=== PATIENT | male | born 1955 | race Caucasian/White ===

== ENCOUNTER 2019-03-13 14:46 | Emergency (ER) | payer OTHER ==
[2019-03-13 15:14] VITALS: BP 148/89; PULSE 79; O2SAT 98
--- NOTE | 2019-03-13 15:17 | ERPHSYRPT ---
- History of Present Illness Time Seen by Provider: 03/13/19 15:12 Source: patient Exam Limitations: no limitations Physician History: injury to right eye 2 days ago. he was playing with grand son and grandson scratched in to his right eye Timing/Duration: yesterday Location: right eye Severity: moderate Apparent Injury: yes Associated Symptoms: pain, burning, sensitivity to light, redness, eyelid swelling, foreign body sensation, No decreased vision, No blurred vision Visual Assistive Devices: None Chemical Exposure: No Trauma: No Welding Arc/Tanning Bed Exposure: No Allergies/Adverse Reactions: No Known Drug Allergies Allergy (Verified 03/13/19 15:14) Home Medications: Aspirin 81 gm Chew [Baby Aspirin 81 mg Chew] 81 mg PO DAILY 11/20/15 [ History] Ibuprofen 200 mg [Motrin 200 mg] 200 mg PO UD PRN 11/20/15 [History] Simvastatin [Zocor] 20 mg PO DAILY 11/20/15 [History] Hx Influenza Vaccination/Date Given: No Hx Pneumococcal Vaccination/Date Given: No - Review of Systems Constitutional: No Fever, No Chills Eyes: Eye Pain, Eye Redness, Tearing, Foreign Body Sensation, No Photophobia, No Vision Changes, No Double Vision Ears, Nose, & Throat: No Symptoms Respiratory: No Cough, No Dyspnea Cardiac: No Chest Pain, No Edema, No Syncope Abdominal/Gastrointestinal: No Abdominal Pain, No Nausea, No Vomiting, No Diarrhea Genitourinary Symptoms: No Dysuria Musculoskeletal: No Back Pain, No Neck Pain Skin: No Rash Neurological: No Dizziness, No Focal Weakness, No Sensory Changes Psychological: No Symptoms Endocrine: No Symptoms All Other Systems: Reviewed and Negative - Past Medical History Pertinent Past Medical History: Yes Neurological History: Migraines ENT History: No Pertinent History Cardiac History: High Cholesterol, Other Respiratory History: No Pertinent History Endocrine Medical History: No Pertinent History Musculoskeletal History: Fractures GI Medical History: No Pertinent History History: No Pertinent History Psycho-Social History: No Pertinent History Male Reproductive Disorders: No Pertinent History Other Medical History: right leg edema- unknown cause. left middle finger reconstruction- nerve damage. borderline htn - Past Surgical History Past Surgical History: Yes Neuro Surgical History: No Pertinent History Cardiac: No Pertinent History Respiratory: No Pertinent History Gastrointestinal: No Pertinent History Genitourinary: No Pertinent History Musculoskeletal: Amputation Male Surgical History: No Pertinent History Other Surgical History: left middle finger. nasal scope with polypectomy and hemmorhage. T&A. left thumb reattachment - Social History Smoking Status: Current every day smoker How long have you smoked: 40 Exposure to second hand smoke: Yes Drug Use: none - Physical Exam General Appearance: no apparent distress Vision Acuity Degree Evaluation Phase: Corrected Vision Acuity Right Eye: 20/20 Vision Acuity Left Eye: 20/20 Eye Exam: right eye: conjunctival hemorrhage, conjunctival inflammation, corneal abrasion (no) - Course Nursing assessment & vital signs reviewed: Yes - Progress Progress: unchanged Counseled pt/family regarding: diagnosis, need for follow-up - Departure Departure Disposition: Home Clinical Impression: Abrasion of conjunctiva, right Qualifiers: Encounter type: initial encounter Qualified Code(s): S05.01XA - Injury of conjunctiva and corneal abrasion without foreign body, right eye, initial encounter Condition: Stable Critical Care Time: No Referrals: DANIEL TAVERAS [Primary Care Provider] - Instructions: Subconjunctival Hemorrhage Additional Instructions: Discharge/Care Plan BRISSA JHAVERI was seen on 03/13/19 in the Emergency Room. The patient was counseled regarding Diagnosis,Lab results, Imaging studies, need for follow up and when to return to the Emergency Room. Prescriptions given: Discharge Note I have spoken with the patient and/or caregivers. I have explained the patient' s condition, diagnosis and treatment plan based on the information available to me at this time. I have answered the patient's and/or caregiver's questions and addressed any concerns. The patient and/or caregivers have as good understanding of the patient's diagnosis, condition and treatment plan as can be expected at this point. The vital signs have been stable. The patient's condition is stable and appropriate for discharge from the emergency department. The patient will pursue further outpatient evaluation with the primary care physician or other designated or consulting physician as outlined in the discharge instructions. The patient and/or caregivers are agreeable to this plan of care and follow-up instructions have been explained in detail. The patient and/or caregivers have received these instruction. The patient/and or caregivers are aware that any significant change in condition or worsening of symptoms should prompt an immediate return to this or the closest emergency department or call 911. Prescriptions: Tobramycin Sulfate/Dexameth [Tobradex Eye Drops] 10 ml OP QID #10 bottle
== END 2019-03-13 15:21 | disposition home or self-care (01) ==
LOC: ED 14:46
DX: S05.01XA Injury of conjunctiva and corneal abrasion without foreign body, right eye, initial encounter (principal); W50.4XXA Accidental scratch by another person, initial encounter
CPT/HCPCS: 99283

== ENCOUNTER 2019-04-04 03:41 | Observation (INO) | payer OTHER ==
--- NOTE | 2019-04-04 04:04 | ERPHSYRPT ---
- History of Present Illness Time Seen by Provider: 04/04/19 04:00 Source: patient, family, EMS Exam Limitations: no limitations Physician History: pt has hx of recent cough tx as bronchitis and had been coughing in bed - so he was getting up to get cough syrup - but not coughing at the time - and suddenly blacked out and hit his face on floor - no CP or dizziness - hx CABG in 2018. Timing/Duration: today Severity: moderate Modifying Factors: Improves With: nothing Associated Symptoms: cough, syncope Allergies/Adverse Reactions: No Known Drug Allergies Allergy (Verified 04/04/19 04:09) Home Medications: Aspirin 81 gm Chew [Baby Aspirin 81 mg Chew] 81 mg PO DAILY 11/20/15 [ History] Carvedilol 3.125 mg [Coreg 3.125 MG] 1 tab PO BID 04/04/19 [History] Clopidogrel Bisulfate 75 mg [PLAVIX 75 MG Tablet] 1 tab PO DAILY 04/04/19 [History] Rosuvastatin Calcium [Crestor] 1 tab PO HS 04/04/19 [History] lisinopriL [Lisinopril] 2.5 mg PO HS 04/04/19 [History] Hx Tetanus, Diphtheria Vaccination/Date Given: Yes Hx Influenza Vaccination/Date Given: No Hx Pneumococcal Vaccination/Date Given: No - Review of Systems Constitutional: No Fever, No Chills Eyes: No Symptoms Ears, Nose, & Throat: Nose Pain, Other (hit left face and nose) Respiratory: Cough, Wheezing, No Dyspnea Cardiac: No Chest Pain, No Edema, No Syncope Abdominal/Gastrointestinal: No Abdominal Pain, No Nausea, No Vomiting, No Diarrhea Genitourinary Symptoms: No Dysuria Musculoskeletal: Neck Pain, Fall, Injury, No Back Pain Skin: Other (abrasion left face), No Rash Neurological: Other (syncope), No Dizziness, No Focal Weakness, No Sensory Changes Psychological: No Symptoms Endocrine: No Symptoms Hematologic/Lymphatic: No Symptoms Immunological/Allergic: No Symptoms All Other Systems: Reviewed and Negative - Past Medical History Pertinent Past Medical History: Yes Neurological History: Migraines ENT History: No Pertinent History Cardiac History: High Cholesterol, Other Respiratory History: No Pertinent History Endocrine Medical History: No Pertinent History Musculoskeletal History: Fractures GI Medical History: No Pertinent History History: No Pertinent History Psycho-Social History: No Pertinent History Male Reproductive Disorders: No Pertinent History Other Medical History: right leg edema- unknown cause. left middle finger reconstruction- nerve damage. borderline htn - Past Surgical History Past Surgical History: Yes Neuro Surgical History: No Pertinent History Cardiac: No Pertinent History Respiratory: No Pertinent History Gastrointestinal: No Pertinent History Genitourinary: No Pertinent History Musculoskeletal: Amputation Male Surgical History: No Pertinent History Other Surgical History: left middle finger. nasal scope with polypectomy and hemmorhage. T&A. left thumb reattachment - Social History Smoking Status: Current every day smoker How long have you smoked: 40 Exposure to second hand smoke: Yes Drug Use: none Patient Lives Alone: No - Nursing Vital Signs Nursing Vital Signs: Initial Vital Signs Pulse Rate 68 04/04/19 03:57 Respiratory Rate 18 04/04/19 03:57 Blood Pressure 136/79 04/04/19 03:57 O2 Sat by Pulse Oximetry 95 04/04/19 03:57 Pain Scale Pain Intensity 3 - Physical Exam General Appearance: no apparent distress, alert Eye Exam: PERRL/EOMI, eyes nml inspection Ears, Nose, Throat Exam: TMs normal, pharynx normal, moist mucous membranes, other (left face trauma, nasal bleeding, tenderness) Neck Exam: normal inspection, supple, limited range of motion, midline tenderness Respiratory Exam: normal breath sounds, lungs clear, No respiratory distress Cardiovascular Exam: regular rate/rhythm, normal heart sounds, normal peripheral pulses Gastrointestinal/Abdomen Exam: soft, normal bowel sounds, No tenderness, No mass Rectal Exam: deferred Back Exam: normal inspection, normal range of motion, No CVA tenderness, No vertebral tenderness Extremity Exam: normal inspection, normal range of motion, pelvis stable Neurologic Exam: alert, oriented x 3, cooperative, 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 nml as tested, normal mood/affect, nml cerebellar function, nml station & gait, sensation nml, No motor deficits, No sensory deficit Skin Exam: normal color, warm, dry, ecchymosis (left face), No rash Lymphatic Exam: No adenopathy - Course Nursing assessment & vital signs reviewed: Yes EKG Interpreted by Me: Sinus Rhythm, NORMAL AXIS, NORMAL INTERVALS, Non- specific ST Changes - Radiology Exams Chest X-ray Interpretation: Reviewed by me, Infiltrates (rml with calc nodes and granulomata) - CT Exams Head CT Interpretation: Tele-radiologist Report, No/Intracranial Hemorrhag, Other ( mild white matter abn) Cervical Spine CT Interpretation: Tele-radiologist Report, No Fracture Maxillofacial Bones CT Interpretation: Tele-radiologist Report, No Fracture, Other (nasal fx suspected anyway) Ordered Tests: Active Orders 24 hr Category Date Time Status 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 Care 04/04/19 04:08 Active EKG-ER Only STAT Care 04/04/19 04:06 Active IV Insertion STAT Care 04/04/19 04:06 Active Pulse Oximetry (ED) STAT Care 04/04/19 04:06 Active CERVICAL SPINE WO CONTRAST [CT] Stat Exams 04/04/19 04:04 Taken CHEST 2 VIEWS (PA AND LAT) Stat Exams 04/04/19 04:08 Taken FACIAL BONES WO CONTRAST [CT] Stat Exams 04/04/19 04:05 Taken HEAD WITHOUT CONTRAST [CT] Stat Exams 04/04/19 04:05 Taken CBC W DIFF Stat Lab 04/04/19 04:19 Completed CMP Stat Lab 04/04/19 04:19 Completed Lactic Acid Stat Lab 04/04/19 05:05 Completed Manual Differential NC Stat Lab 04/04/19 04:19 Completed NT PRO BNP Stat Lab 04/04/19 04:19 Completed TROPONIN Q3H Lab 04/04/19 04:19 Completed TROPONIN Q3H Lab 04/04/19 07:15 Ordered TROPONIN Q3H Lab 04/04/19 10:15 Ordered TROPONIN Q3H Lab 04/04/19 13:15 Ordered TROPONIN Q3H Lab 04/04/19 16:15 Ordered UA W/RFX UR CULTURE Stat Lab 04/04/19 04:14 Ordered Respiratory Therapy Assessment DAILY RT 04/04/19 05:52 Completed Medication Summary Generic Name Dose Route Start Last Admin Trade Name Freq PRN Reason Stop Dose Admin Sodium Chloride 1,000 mls @ 50 mls/hr 04/04/19 04:15 04/04/19 04:13 Sodium Chloride 0.9% 1000 Ml IV 05/04/19 04:14 50 mls/hr .Q20H JERED Administration Potassium Chloride 20 meq in 100 mls @ 50 mls/hr 04/04/19 05:15 04/04/19 05: 24 Potassium Chloride 20 Meq In Water 100ml IV 04/04/19 09:14 50 mls/hr Q2H JERED Administration Sodium Chloride 1,000 mls @ 100 mls/hr 04/04/19 06:00 Sodium Chloride 0.9% 1000 Ml IV 05/04/19 05:59 .Q10H JERED Discontinued Medications Generic Name Dose Route Start Last Admin Trade Name Jaq PRN Reason Stop Dose Admin Albuterol/Ipratropium 3 ml 04/04/19 05:10 04/04/19 05:57 Duoneb 0.5-3 Mg/3 Ml Neb IH 04/04/19 05:11 3 ml STAT ONE Administration Albuterol/Ipratropium Confirm 04/04/19 05:49 Duoneb 0.5-3 Mg/3 Ml Neb Administered 04/04/19 05:50 Dose 3 ml IH .STK-MED ONE Levofloxacin/Dextrose 750 mg in 150 mls @ 100 mls/hr 04/04/19 04:19 04/04/19 05:58 Levofloxacin 750mg/150ml D5w IV 04/04/19 05:48 Infused STAT STA Infusion Ceftriaxone Sodium/Dextrose 1 g in 50 mls @ 100 mls/hr 04/04/19 04:19 05:19 Rocephin 1 Gm-D5w 50 Ml Bag IV 04/04/19 04:48 Infused STAT STA Infusion Ceftriaxone Sodium/Dextrose Confirm 04/04/19 04:33 Rocephin 1 Gm-D5w 50 Ml Bag Administered 04/04/19 04:34 Dose 1 g in 50 mls @ ud IV .STK-MED ONE Levofloxacin/Dextrose Confirm 04/04/19 04:33 Levofloxacin 750mg/150ml D5w Administered 04/04/19 04:34 Dose 750 mg in 150 mls @ ud IV .STK-MED ONE Potassium Bicarbonate 25 meq 04/04/19 05:11 04/04/19 05:23 K-Lyte 25 Meq PO 04/04/19 05:12 25 meq STAT ONE Administration Potassium Bicarbonate Confirm 04/04/19 05:18 K-Lyte 25 Meq Administered 04/04/19 05:19 Dose 25 meq .ROUTE .STK-MED ONE Lab/Rad Data: Laboratory Result Diagrams 04/04/19 04:19 04/04/19 04:19 Laboratory Results 04/04/19 04/04/19 04/04/19 Range/Units Unknown 05:05 04:19 WBC (4.0-10.5) K/mm3 RBC (4.1-5.6) M/mm3 Hgb (12.5-18.0) gm/dl Hct (42-50) % MCV (78-100) fl MCH (26-32) pg MCHC (32-36) g/dl RDW (11.5-14.0) % Plt Count (150-450) K/mm3 MPV (7.5-11.0) fl Segmented Neutrophils (36.-66.) % Band Neutrophils (0.0-2.0) % Lymphocytes (Manual) (24-44) % Monocytes (Manual) (0.0-12.0) % Eosinophils (Manual) (0.00-3.0) % Platelet Estimate (NORMAL) RBC Morphology Sodium (137-145) mmol/L Potassium (3.5-5.1) mmol/L Chloride (98-107) mmol/L Carbon Dioxide (22-30) mmol/L Anion Gap (5-15) MEQ/L BUN (9-20) mg/dL Creatinine (0.66-1.25) mg/dL Estimated GFR ML/MIN Glucose (74-106) mg/dL Lactic Acid 1.4 (0.4-2.0) Calcium (8.4-10.2) mg/dL Total Bilirubin (0.2-1.3) mg/dL AST (17-59) U/L ALT (0-50) U/L Alkaline Phosphatase (38-126) U/L Troponin I < 0.012 (0.000-0.034) ng/mL NT-Pro-B Natriuret Pep (0-900) pg/mL Serum Total Protein (6.3-8.2) g/dL Albumin (3.5-5.0) g/dL Influenza Type A Ag NEGATIVE (NEGATIVE) Influenza Type B Ag NEGATIVE (NEGATIVE) RSV (PCR) NEGATIVE (Negative) 04/04/19 04/04/19 Range/Units 04:19 04:19 WBC 10.8 H (4.0-10.5) K/mm3 RBC 4.45 (4.1-5.6) M/mm3 Hgb 13.7 (12.5-18.0) gm/dl Hct 42.9 (42-50) % MCV 96.4 (78-100) fl MCH 30.8 (26-32) pg MCHC 31.9 L (32-36) g/dl RDW 14.0 (11.5-14.0) % Plt Count 255 (150-450) K/mm3 MPV 10.7 (7.5-11.0) fl Segmented Neutrophils 77 H (36.-66.) % Band Neutrophils 1 (0.0-2.0) % Lymphocytes (Manual) 11 L (24-44) % Monocytes (Manual) 9 (0.0-12.0) % Eosinophils (Manual) 2 (0.00-3.0) % Platelet Estimate NORMAL (NORMAL) RBC Morphology NORMAL Sodium 140 (137-145) mmol/L Potassium 3.2 L (3.5-5.1) mmol/L Chloride 103 (98-107) mmol/L Carbon Dioxide 29 (22-30) mmol/L Anion Gap 10.8 (5-15) MEQ/L BUN 15 (9-20) mg/dL Creatinine 0.89 (0.66-1.25) mg/dL Estimated GFR > 60.0 ML/MIN Glucose 110 H (74-106) mg/dL Lactic Acid (0.4-2.0) Calcium 9.0 (8.4-10.2) mg/dL Total Bilirubin 0.50 (0.2-1.3) mg/dL AST 52 (17-59) U/L ALT 44 (0-50) U/L Alkaline Phosphatase 96 (38-126) U/L Troponin I (0.000-0.034) ng/mL NT-Pro-B Natriuret Pep 208 (0-900) pg/mL Serum Total Protein 6.8 (6.3-8.2) g/dL Albumin 3.8 (3.5-5.0) g/dL Influenza Type A Ag (NEGATIVE) Influenza Type B Ag (NEGATIVE) RSV (PCR) (Negative) - Progress Progress: improved, re-examined Progress Note: 04/04/19 04:58 although faint score is only 1 (for minor abn ekg) 3% risk, the [place] score ( hx CAD and sudden syncope without warning) is 3 at 8% risk 04/04/19 06:[address] Ruiz and pt /family and all agree best to place on tele obs due to cardiac risk Discussed with : Liz Will see patient in: hospital (observation) Counseled pt/family regarding: lab results, diagnosis, need for follow-up, rad results - Departure Departure Disposition: Observation Clinical Impression: Syncopal episodes Condition: Good Critical Care Time: No Referrals: DANIEL TAVERAS [Primary Care Provider] -
[2019-04-04] MEDS ORDERED: Sodium Chloride 0.9% 1000 ML 0 ML ONE (04:13)
[2019-04-04] MEDS ORDERED: Sodium Chloride 0.9% 1000 ML 1,000 ML IV SCH ×2 (04:15→06:00)
[2019-04-04] MEDS ORDERED: LEVOFLOXACIN 750MG/150ML D5W 750 MG/150 ML BAG IV STA (04:19)
[2019-04-04] MEDS ORDERED: ROCEPHIN 1 Gm-D5w 50 ml Bag** 1 G/50 ML IVPB IV STA (04:19)
[2019-04-04 04:20] LABS: Hematocrit 42.9 % (42-50); Hemoglobin 13.7 gm/dl (12.5-18.0); Mean Cell Volume 96.4 fl (78-100); Mean Corpuscular Hemoglobin 30.8 pg (26-32); Mean Corpuscular Hgb Concent. 31.9 g/dl (32-36); Mean Platelet Volume 10.7 fl (7.5-11.0); Platelet Count 255 K/mm3 (150-450); Red Blood Count 4.45 M/mm3 (4.1-5.6); White Blood Count 10.8 K/mm3 (4.0-10.5)
[2019-04-04] MEDS ORDERED: LEVOFLOXACIN 750MG/150ML D5W 750 MG/150 ML BAG IV ONE (04:33)
[2019-04-04] MEDS ORDERED: ROCEPHIN 1 Gm-D5w 50 ml Bag** 1 G/50 ML IVPB IV ONE (04:33)
[2019-04-04 04:53] LABS: ALBUMIN 3.8 g/dL (3.5-5.0); ALKALINE PHOSPHATASE 96 U/L (38-126); ANION GAP 10.8 MEQ/L (5-15); BLOOD UREA NITROGEN 15 mg/dL (9-20); CHLORIDE 103 mmol/L (98-107); Carbon Dioxide 29 mmol/L (22-30); Creatinine 1 0.89 mg/dL (0.66-1.25); Glucose 110 mg/dL (74-106); NT PRO BNP 208 pg/mL (0-900); Potassium 3.2 mmol/L (3.5-5.1); SGOT/AST 52 U/L (17-59); SGPT/ALT 44 U/L (0-50); SODIUM 140 mmol/L (137-145); Total Protein 6.8 g/dL (6.3-8.2)
[2019-04-04] MEDS ORDERED: DUONEB 0.5-3 MG/3 ml Neb IH ONE ×2 (05:10→05:49)
[2019-04-04] MEDS ORDERED: K-LYTE 25 MEQ PO ONE (05:11)
[2019-04-04 05:13] LABS: BAND 1 % (0.0-2.0); Eosinophil 2 % (0.00-3.0); Lymphocytes 11 % (24-44); Monocyte 9 % (0.0-12.0); Neutrophils 77 % (36.-66.); Total Cells Counted 100
[2019-04-04 05:14] LABS: Platelet Estimate NORMAL (NORMAL)
[2019-04-04] MEDS ORDERED: K-LYTE 25 MEQ ONE (05:18)
[2019-04-04] MEDS: POTASSIUM CHLORIDE 20 mEq IN WATER 100ML 20 MEQ/100 ML BAG IV SCH ×2 (05:24→12:36)
[2019-04-04 05:36] LABS: INFLUENZA A NEGATIVE (NEGATIVE); INFLUENZA B NEGATIVE (NEGATIVE); RESPIRATORY SYNCTIAL VIRUS NEGATIVE (Negative)
[2019-04-04] MEDS ORDERED: Sodium Chloride 0.9% 1000 ML 1,000 ML ONE (05:46)
[2019-04-04 06:41] LABS: Appearance SLIGHTLY CLOUDY (CLEAR); Bilirubin NEGATIVE (NEGATIVE); Blood NEGATIVE Ery/ul (0-5); Epithelial Cells RARE /HPF (FEW); Glucose NEGATIVE (NEGATIVE); Hyaline Casts 0-2 /LPF (0-2); Ketones NEGATIVE (NEGATIVE); Leukocyte Esterase NEGATIVE (NEGATIVE); Mucus SLIGHT /HPF (NEGATIVE); Nitrite NEGATIVE (NEGATIVE); Protein,Urine Dip NEGATIVE (Negative); Specific Gravity 1.026 (1.005-1.025); Urobilinogen NEGATIVE mg/dL (0-1)
[2019-04-04] MEDS ORDERED: TYLENOL EXTRA STRENGTH 500 MG PO STA (07:04)
[2019-04-04] MEDS ORDERED: TYLENOL EXTRA STRENGTH 500 MG ONE (07:46)
[2019-04-04] MEDS ORDERED: DUONEB 0.5-3 MG/3 ml Neb IH PRN (08:15)
--- NOTE | 2019-04-04 08:41 | XRAY ---
Indication: Wheezing. Syncope. Pneumonia. Comparison: March 30, 2019. PA/lateral chest less inflated again with minimal lingular fibrosis/scarring and scattered calcified granulomas. No focal infiltrate, consolidation, or large effusion. Heart is not enlarged again with CABG surgery. Impression: Stable nonacute chest with chronic features.
--- NOTE | 2019-04-04 08:43 | XRAY ---
Indication: Syncope with fall. Multiple contiguous axial images obtained through the head without contrast. Comparison: None Age-appropriate global atrophy. No acute intracranial hemorrhage, abnormal extra-axial fluid collection, or mass effect. Fourth ventricle is midline without hydrocephalus. Moreno-white matter differentiation preserved. Bony calvarium intact. There is near complete opacification of both ethmoid sinuses with mild mucosal thickening of both maxillary and lesser degree sphenoid sinuses. Mastoid air cells are clear. Impression: Pansinusitis. Remaining CT head without contrast exam is normal. Comment: Preliminary interpretation was made by [facility]. No critical discrepancy.
--- NOTE | 2019-04-04 08:47 | XRAY ---
Indication: Syncope with fall. Multiple contiguous axial images obtained through the facial bones. Sagittal and coronal reformatted images obtained. Comparison: None Bilateral dental amalgams produces beam artifact limiting these levels. No acute fracture, suspicious bony lesions, or radiopaque foreign body. Orbits including roof, barnes, and floors are intact. There is near complete opacification of both ethmoid sinuses with mild mucosal thickening of both maxillary and lesser degree both sphenoid/frontal sinuses. Additional mucosal thickening of both nasal passages. Moderate nasal septal deviation. Remaining visualized noncontrasted soft tissues are unremarkable. CT head and CT cervical spine reported separately. Impression: Pansinusitis and nasal septal deviation. Remaining CT facial bones is negative. Comment: Preliminary interpretation was made by [facility]. No critical discrepancy.
--- NOTE | 2019-04-04 08:49 | XRAY ---
Indication: Syncope with fall. Multiple contiguous axial images obtained through the cervical spine. Sagittal and coronal reformatted images obtained. Comparison: None Axial images negative for acute fracture, suspicious bony lesions, or spinal canal stenosis. Minimal C6-T1 degenerative endplate spurring. Minimal multilevel degenerative facet hypertrophy, right greater than left. Sagittal and coronal reformatted images demonstrate normal alignment. Minimal C6-C7 disc space narrowing. No acute compression fracture, subluxation, or jumped facet. Normal appearing craniocervical junction. Visualized noncontrasted soft tissues demonstrates mild carotid calcifications bilaterally. CT head and CT facial bones reported separately. Impression: Mild multilevel degenerative changes. Remaining CT cervical spine is negative. Comment: Preliminary interpretation was made by [facility]. No critical discrepancy.
[2019-04-04] MEDS: solu-MEDROL 125 MG IV SCH ×4 (10:37→23:16)
[2019-04-04] MEDS ORDERED: POTASSIUM CHLORIDE 20 mEq IN WATER 100ML 100 ML IV ONE (12:25)
[2019-04-04] MEDS ORDERED: OCEAN Nasal Spray NS PRN (16:15)
[2019-04-04] MEDS: PLAVIX 75 MG Tablet PO SCH (16:29)
[2019-04-04] MEDS: ECOTRIN 81 MG PO SCH (16:29)
[2019-04-04] MEDS: Coreg 3.125 MG PO SCH ×2 (16:29→22:04)
[2019-04-04] MEDS: Mobic 7.5 MG PO SCH (16:30)
[2019-04-04] MEDS: PROVENTIL 2.5 MG/3 ML NEB IH SCH (19:50)
--- NOTE | 2019-04-04 20:11 | PCM.HP ---
History of Present Illness - Chief Complaint Chief Complaint: snycope History of Present Illness: is a 63 year old male pt of mine from [facility] with CAD (hx CABG) and HTN who was admitted through ER this morning with syncope. He sat up in bed to cough and fell over onto his face, injuring his left cheek. He was not responding to his (but was breathing) then had some jerking motions and then woke up. EMS responded but did not take pt to ER; pt's then put him in the car and went to ER. While in the ED, he had a coughing fit and his face turned red; called for staff. Pt does not remember this episode but he did not fully lose consciousness. Apparently pt has been ill with upper and lower respiratory symptoms for the past 5-6 wks. He was treated a few times in clinic, both with steroids and antibiotics. He thought he was starting to improve. He does note he has never been this sick. CT head with childers sinusitis, neg for bleed. CXR read as RML infiltrate in ER, but read as negative by radiologist. Troponins neg x 5. Flu neg. Pt was given 1 dose of rocephin IV and 1 dose Levaquin IV today. - Review of Systems Constitutional: Fever (last week, none in the past 5d) Ears, Nose, & Throat: Other (pain L cheek s/p fall) Respiratory: Cough, Short Of Breath, Wheezing Cardiac: Chest Pain (with coughing), Edema (LLE, chronic), Syncope Abdominal/Gastrointestinal: Diarrhea (last week), Appetite Changes, Other ( dyspepsia this week) Musculoskeletal: Fall, Injury All Other Systems: Reviewed and Negative Medications & Allergies Home Medications: Home Medication List Aspirin 81 gm Chew [Baby Aspirin 81 mg Chew] 81 mg PO DAILY 11/20/15 [ History Confirmed 04/04/19] Carvedilol 3.125 mg [Coreg 3.125 MG] 1 tab PO BID 04/04/19 [History Confirmed 04/04/19] Clopidogrel Bisulfate 75 mg [PLAVIX 75 MG Tablet] 1 tab PO DAILY 04/04/19 [History Confirmed 04/04/19] Multivitamin [Multivitamins] 1 each PO DAILY 04/04/19 [History Confirmed ] Rosuvastatin Calcium [Crestor] 1 tab PO HS 04/04/19 [History Confirmed 04/04/19] lisinopriL [Lisinopril] 2.5 mg PO HS 04/04/19 [History Confirmed 04/04/19] Allergies/Adverse Reactions: Allergies Allergy/AdvReac Type Severity Reaction Status Date / Time No Known Drug Allergies Allergy Verified 04/04/19 04:09 - Past Medical History Past Medical History: Yes Neurological History: Migraines ENT History: No Pertinent History Cardiac History: High Cholesterol, Other Respiratory History: No Pertinent History Endocrine Medical History: No Pertinent History Musculoskelatal History: Fractures GI Medical History: No Pertinent History History: No Pertinent History Pyscho-Social History: No Pertinent History Male Reproductive Disorders: No Pertinent History Comment: right leg edema- unknown cause. left middle finger reconstruction- nerve damage. borderline htn - Past Surgical History Past Surgical History: Yes Neuro Surgical History: No Pertinent History Cardiac History: CABG Respiratory Surgery: No Pertinent History GI Surgical History: No Pertinent History Genitourinary Surgical Hx: No Pertinent History Musculskeletal Surgical Hx: Amputation Male Surgical History: No Pertinent History Other Surgical History: left middle finger. nasal scope with polypectomy and hemmorhage. T&A. left thumb reattachment. CABG 2018 - Social History Smoking Status: Former smoker How long have you smoked: 40 Exposure to second hand smoke: Yes Alcohol: Rarely Drug Use: none - Physical Exam Vital Signs: Vital Signs - 24 hr Temp Pulse Resp BP Pulse Ox 04/04/19 19:52 80 20 92 L 04/04/19 19:30 98.8 F 78 22 119/67 91 L 04/04/19 16:14 97.8 F 70 20 133/78 97 04/04/19 12:20 97.7 F 67 20 143/80 98 04/04/19 08:42 98.2 F 70 20 136/75 96 04/04/19 08:20 92 L 04/04/19 08:19 98.2 F 70 20 136/75 96 04/04/19 08:00 98.2 F 70 20 136/75 96 04/04/19 07:05 68 153/91 96 04/04/19 05:59 64 22 133/81 100 04/04/19 05:57 66 19 96 04/04/19 05:53 65 132/75 97 04/04/19 05:00 60 16 128/71 97 04/04/19 04:14 98 04/04/19 03:57 68 18 136/79 95 General Appearance: no apparent distress, alert Neurologic Exam: oriented x 3, cooperative Eye Exam: other (lateral to L eye and inferior to that there is bruising) Ears, Nose, Throat Exam: moist mucous membranes Neck Exam: normal inspection, non-tender, No lymphadenopathy Respiratory Exam: normal breath sounds, crackles/rales (mild bilat bases), No rhonchi, No wheezing Cardiovascular Exam: regular rate/rhythm, normal heart sounds, No murmur Gastrointestinal/Abdomen Exam: soft, No normal bowel sounds (hypoactive but present), No tenderness, No mass, No guarding, No rebound Back Exam: normal inspection, No CVA tenderness, No rash Extremity Exam: normal inspection, No pedal edema, No swelling Skin Exam: normal color, warm, dry, No rash Results - Labs Lab/Micro Results: Accuchecks Date 04/04/19 Date 04/04/19 Time 16:30 Time 12:21 Accucheck Value: 120 Accucheck Value: 106 Lab Results-Last 24 Hours 04/04/19 04/04/19 04/04/19 Range/Units 04:14 04:19 04:19 WBC 10.8 H (4.0-10.5) K/mm3 RBC 4.45 (4.1-5.6) M/mm3 Hgb 13.7 (12.5-18.0) gm/dl Hct 42.9 (42-50) % MCV 96.4 (78-100) fl MCH 30.8 (26-32) pg MCHC 31.9 L (32-36) g/dl RDW 14.0 (11.5-14.0) % Plt Count 255 (150-450) K/mm3 MPV 10.7 (7.5-11.0) fl Segmented Neutrophils 77 H (36.-66.) % Band Neutrophils 1 (0.0-2.0) % Lymphocytes (Manual) 11 L (24-44) % Monocytes (Manual) 9 (0.0-12.0) % Eosinophils (Manual) 2 (0.00-3.0) % Platelet Estimate NORMAL (NORMAL) RBC Morphology NORMAL Sodium 140 (137-145) mmol/L Potassium 3.2 L (3.5-5.1) mmol/L Chloride 103 (98-107) mmol/L Carbon Dioxide 29 (22-30) mmol/L Anion Gap 10.8 (5-15) MEQ/L BUN 15 (9-20) mg/dL Creatinine 0.89 (0.66-1.25) mg/dL Estimated GFR > 60.0 ML/MIN Glucose 110 H (74-106) mg/dL Hemoglobin A1c (4.5-6.0) % Lactic Acid (0.4-2.0) Calcium 9.0 (8.4-10.2) mg/dL Total Bilirubin 0.50 (0.2-1.3) mg/dL AST 52 (17-59) U/L ALT 44 (0-50) U/L Alkaline Phosphatase 96 (38-126) U/L Troponin I (0.000-0.034) ng/mL NT-Pro-B Natriuret Pep 208 (0-900) pg/mL Serum Total Protein 6.8 (6.3-8.2) g/dL Albumin 3.8 (3.5-5.0) g/dL Urine Color YELLOW (YELLOW) Urine Appearance SLIGHTLY CLOUDY (CLEAR) Urine pH 5.0 (5-6) Ur Specific [place] 1.026 (1.005-1.025) Urine Protein NEGATIVE (Negative) Urine Ketones NEGATIVE (NEGATIVE) Urine Blood NEGATIVE (0-5) Ish/ul Urine Nitrite NEGATIVE (NEGATIVE) Urine Bilirubin NEGATIVE (NEGATIVE) Urine Urobilinogen NEGATIVE (0-1) mg/dL Ur Leukocyte Esterase NEGATIVE (NEGATIVE) Urine WBC (Auto) 3-5 (0-5) /HPF Urine RBC (Auto) 3-5 (0-2) /HPF U Hyaline Cast (Auto) 0-2 (0-2) /LPF U Epithel Cells (Auto) RARE (FEW) /HPF Urine Bacteria (Auto) NONE (NEGATIVE) /HPF Urine Mucus (Auto) SLIGHT (NEGATIVE) /HPF Urine Culture Reflexed NO (NO) Urine Glucose NEGATIVE (NEGATIVE) mg/dL Influenza Type A Ag (NEGATIVE) Influenza Type B Ag (NEGATIVE) RSV (PCR) (Negative) 04/04/19 04/04/19 04/04/19 Range/Units 04:19 04:19 05:05 WBC (4.0-10.5) K/mm3 RBC (4.1-5.6) M/mm3 Hgb (12.5-18.0) gm/dl Hct (42-50) % MCV (78-100) fl MCH (26-32) pg MCHC (32-36) g/dl RDW (11.5-14.0) % Plt Count (150-450) K/mm3 MPV (7.5-11.0) fl Segmented Neutrophils (36.-66.) % Band Neutrophils (0.0-2.0) % Lymphocytes (Manual) (24-44) % Monocytes (Manual) (0.0-12.0) % Eosinophils (Manual) (0.00-3.0) % Platelet Estimate (NORMAL) RBC Morphology Sodium (137-145) mmol/L Potassium (3.5-5.1) mmol/L Chloride (98-107) mmol/L Carbon Dioxide (22-30) mmol/L Anion Gap (5-15) MEQ/L BUN (9-20) mg/dL Creatinine (0.66-1.25) mg/dL Estimated GFR ML/MIN Glucose (74-106) mg/dL Hemoglobin A1c 5.95 (4.5-6.0) % Lactic Acid 1.4 (0.4-2.0) Calcium (8.4-10.2) mg/dL Total Bilirubin (0.2-1.3) mg/dL AST (17-59) U/L ALT (0-50) U/L Alkaline Phosphatase (38-126) U/L Troponin I < 0.012 (0.000-0.034) ng/mL NT-Pro-B Natriuret Pep (0-900) pg/mL Serum Total Protein (6.3-8.2) g/dL Albumin (3.5-5.0) g/dL Urine Color (YELLOW) Urine Appearance (CLEAR) Urine pH (5-6) Ur Specific [place] (1.005-1.025) Urine Protein (Negative) Urine Ketones (NEGATIVE) Urine Blood (0-5) Ish/ul Urine Nitrite (NEGATIVE) Urine Bilirubin (NEGATIVE) Urine Urobilinogen (0-1) mg/dL Ur Leukocyte Esterase (NEGATIVE) Urine WBC (Auto) (0-5) /HPF Urine RBC (Auto) (0-2) /HPF U Hyaline Cast (Auto) (0-2) /LPF U Epithel Cells (Auto) (FEW) /HPF Urine Bacteria (Auto) (NEGATIVE) /HPF Urine Mucus (Auto) (NEGATIVE) /HPF Urine Culture Reflexed (NO) Urine Glucose (NEGATIVE) mg/dL Influenza Type A Ag (NEGATIVE) Influenza Type B Ag (NEGATIVE) RSV (PCR) (Negative) 04/04/19 04/04/19 04/04/19 Range/Units 07:24 10:15 13:15 WBC (4.0-10.5) K/mm3 RBC (4.1-5.6) M/mm3 Hgb (12.5-18.0) gm/dl Hct (42-50) % MCV (78-100) fl MCH (26-32) pg MCHC (32-36) g/dl RDW (11.5-14.0) % Plt Count (150-450) K/mm3 MPV (7.5-11.0) fl Segmented Neutrophils (36.-66.) % Band Neutrophils (0.0-2.0) % Lymphocytes (Manual) (24-44) % Monocytes (Manual) (0.0-12.0) % Eosinophils (Manual) (0.00-3.0) % Platelet Estimate (NORMAL) RBC Morphology Sodium (137-145) mmol/L Potassium (3.5-5.1) mmol/L Chloride (98-107) mmol/L Carbon Dioxide (22-30) mmol/L Anion Gap (5-15) MEQ/L BUN (9-20) mg/dL Creatinine (0.66-1.25) mg/dL Estimated GFR ML/MIN Glucose (74-106) mg/dL Hemoglobin A1c (4.5-6.0) % Lactic Acid (0.4-2.0) Calcium (8.4-10.2) mg/dL Total Bilirubin (0.2-1.3) mg/dL AST (17-59) U/L ALT (0-50) U/L Alkaline Phosphatase (38-126) U/L Troponin I < 0.012 < 0.012 < 0.012 (0.000-0.034) ng/mL NT-Pro-B Natriuret Pep (0-900) pg/mL Serum Total Protein (6.3-8.2) g/dL Albumin (3.5-5.0) g/dL Urine Color (YELLOW) Urine Appearance (CLEAR) Urine pH (5-6) Ur Specific [place] (1.005-1.025) Urine Protein (Negative) Urine Ketones (NEGATIVE) Urine Blood (0-5) Ish/ul Urine Nitrite (NEGATIVE) Urine Bilirubin (NEGATIVE) Urine Urobilinogen (0-1) mg/dL Ur Leukocyte Esterase (NEGATIVE) Urine WBC (Auto) (0-5) /HPF Urine RBC (Auto) (0-2) /HPF U Hyaline Cast (Auto) (0-2) /LPF U Epithel Cells (Auto) (FEW) /HPF Urine Bacteria (Auto) (NEGATIVE) /HPF Urine Mucus (Auto) (NEGATIVE) /HPF Urine Culture Reflexed (NO) Urine Glucose (NEGATIVE) mg/dL Influenza Type A Ag (NEGATIVE) Influenza Type B Ag (NEGATIVE) RSV (PCR) (Negative) 04/04/19 04/04/19 Range/Units 16:25 Unknown WBC (4.0-10.5) K/mm3 RBC (4.1-5.6) M/mm3 Hgb (12.5-18.0) gm/dl Hct (42-50) % MCV (78-100) fl MCH (26-32) pg MCHC (32-36) g/dl RDW (11.5-14.0) % Plt Count (150-450) K/mm3 MPV (7.5-11.0) fl Segmented Neutrophils (36.-66.) % Band Neutrophils (0.0-2.0) % Lymphocytes (Manual) (24-44) % Monocytes (Manual) (0.0-12.0) % Eosinophils (Manual) (0.00-3.0) % Platelet Estimate (NORMAL) RBC Morphology Sodium (137-145) mmol/L Potassium (3.5-5.1) mmol/L Chloride (98-107) mmol/L Carbon Dioxide (22-30) mmol/L Anion Gap (5-15) MEQ/L BUN (9-20) mg/dL Creatinine (0.66-1.25) mg/dL Estimated GFR ML/MIN Glucose (74-106) mg/dL Hemoglobin A1c (4.5-6.0) % Lactic Acid (0.4-2.0) Calcium (8.4-10.2) mg/dL Total Bilirubin (0.2-1.3) mg/dL AST (17-59) U/L ALT (0-50) U/L Alkaline Phosphatase (38-126) U/L Troponin I < 0.012 (0.000-0.034) ng/mL NT-Pro-B Natriuret Pep (0-900) pg/mL Serum Total Protein (6.3-8.2) g/dL Albumin (3.5-5.0) g/dL Urine Color (YELLOW) Urine Appearance (CLEAR) Urine pH (5-6) Ur Specific [place] (1.005-1.025) Urine Protein (Negative) Urine Ketones (NEGATIVE) Urine Blood (0-5) Ish/ul Urine Nitrite (NEGATIVE) Urine Bilirubin (NEGATIVE) Urine Urobilinogen (0-1) mg/dL Ur Leukocyte Esterase (NEGATIVE) Urine WBC (Auto) (0-5) /HPF Urine RBC (Auto) (0-2) /HPF U Hyaline Cast (Auto) (0-2) /LPF U Epithel Cells (Auto) (FEW) /HPF Urine Bacteria (Auto) (NEGATIVE) /HPF Urine Mucus (Auto) (NEGATIVE) /HPF Urine Culture Reflexed (NO) Urine Glucose (NEGATIVE) mg/dL Influenza Type A Ag NEGATIVE (NEGATIVE) Influenza Type B Ag NEGATIVE (NEGATIVE) RSV (PCR) NEGATIVE (Negative) Accuchecks Date 04/04/19 Date 04/04/19 Time 16:30 Time 12:21 Accucheck Value: 120 Accucheck Value: 106 - Radiology Impressions Radiology Exams & Impressions: Radiology Procedures Category Date Time Status CAROTID BILATERAL [US] Routine Exams 04/05/19 08:00 Ordered CERVICAL SPINE WO CONTRAST [CT] Stat Exams 04/04/19 04:04 Completed CHEST 2 VIEWS (PA AND LAT) Stat Exams 04/04/19 04:08 Completed ECHO W/2D AND DOPPLER [US] Routine Exams 04/05/19 Ordered FACIAL BONES WO CONTRAST [CT] Stat Exams 04/04/19 04:05 Completed HEAD WITHOUT CONTRAST [CT] Stat Exams 04/04/19 04:05 Completed - Other Procedures and Tests Respiratory Therapy 04/04/19 05:52 Respiratory Therapy Assessment DAILY 04/04/19 08:53 Peak Expiratory Flow Rate ONCE Assessment/Plan (1) Syncopal episodes Current Visit: Yes Status: Acute Qualifiers: Syncope type: vasovagal syncope Qualified Code(s): R55 - Syncope and collapse Assessment & Plan: Likely vasovagal, pt has never had before but has never been this ill before. Will go ahead with echo and carotid doppler in a.m., then make sure pt can get up and around without any syncope then discharge to home likely tomorrow. Code(s): R55 - SYNCOPE AND COLLAPSE (2) Sinusitis Current Visit: Yes Status: Acute Qualifiers: Sinusitis location: pansinusitis Chronicity: subacute Qualified Code(s): J01.40 - Acute pansinusitis, unspecified Assessment & Plan: Remain on IV levaquin while here. Home on po levaquin. Code(s): J32.9 - CHRONIC SINUSITIS, UNSPECIFIED (3) Abrasion, face w/o infection Current Visit: Yes Status: Acute Assessment & Plan: no fx Code(s): S00.81XA - ABRASION OF OTHER PART OF HEAD, INITIAL ENCOUNTER
[2019-04-04] MEDS ORDERED: ROSUVASTATIN CALCIUM PO SCH (22:00)
[2019-04-04] MEDS: Sodium Chloride 0.9% 1000 ML 1,000 ML IV SCH (22:02)
[2019-04-04] MEDS: Zestril 5 MG PO SCH (22:04)
[2019-04-04] MEDS: ZOCOR 20MG PO SCH (22:04)
[2019-04-04] MEDS: NovoLIN R SQ PRN (22:37)
[2019-04-05] MEDS: solu-MEDROL 125 MG IV SCH ×3 (05:55→17:26)
[2019-04-05] MEDS: PROVENTIL 2.5 MG/3 ML NEB IH SCH ×2 (07:30→19:43)
--- NOTE | 2019-04-05 09:13 | PCM.NOTE ---
Date and Time: 04/05/19907 Subjective Assessment: He is feeling better today. Did have a coughing fit yesterday evening but shorter than usual. Hay po well. - Review of Systems Respiratory: Cough, Short Of Breath Objective Exam General Appearance: no apparent distress, alert Neurologic Exam: oriented x 3, cooperative Skin Exam: normal color, warm, dry, No rash Eye Exam: eyes nml inspection Ears, Nose, Throat Exam: moist mucous membranes Respiratory Exam: diminished breath sounds, wheezing (RML), No crackles/rales, No rhonchi Cardiovascular Exam: regular rate/rhythm, normal heart sounds, No murmur Extremity Exam: No pedal edema, No swelling Back Exam: normal inspection, No rash OBJECTIVE DATA Vital Signs: Vital Signs - 24 hr Temp Pulse Resp BP Pulse Ox 04/05/19 07:31 72 16 92 L 04/05/19 04:00 98.2 F 86 18 129/78 93 L 04/04/19 23:54 98.4 F 80 24 134/73 91 L 04/04/19 19:52 80 20 92 L 04/04/19 19:30 98.8 F 78 22 119/67 91 L 04/04/19 16:14 97.8 F 70 20 133/78 97 04/04/19 12:20 97.7 F 67 20 143/80 98 Pain Assessment - Last Documented Pain Intensity 0 Pain Scale Used 0-10 Pain Scale Intake and Output: Intake & Output 04/02/19 04/03/19 04/04/19 04/05/19 11:59 11:59 11:59 11:59 Intake Total 240 3540 Output Total 1550 Balance 240 1989 Weight 90.265 kg Lab Results: Accuchecks Date 04/04/19 Date 04/04/19 Date 04/04/19 Time 21:00 Time 16:30 Time 12:21 Accucheck Value: 163 Accucheck Value: 120 Accucheck Value: 106 Lab Results-Last 24 Hours 04/04/19 04/04/19 04/04/19 Range/Units 04:19 10:15 13:15 Potassium (3.5-5.1) mmol/L Hemoglobin A1c 5.95 (4.5-6.0) % Troponin I < 0.012 < 0.012 (0.000-0.034) ng/mL 04/04/19 04/04/19 Range/Units 16:25 21:45 Potassium 4.0 D (3.5-5.1) mmol/L Hemoglobin A1c (4.5-6.0) % Troponin I < 0.012 (0.000-0.034) ng/mL Radiology Exams: Radiology Procedures Category Date Time Status CAROTID BILATERAL [US] Routine Exams 04/05/19 08:00 Ordered CERVICAL SPINE WO CONTRAST [CT] Stat Exams 04/04/19 04:04 Completed CHEST 2 VIEWS (PA AND LAT) Stat Exams 04/04/19 04:08 Completed ECHO W/2D AND DOPPLER [US] Routine Exams 04/05/19 Ordered FACIAL BONES WO CONTRAST [CT] Stat Exams 04/04/19 04:05 Completed HEAD WITHOUT CONTRAST [CT] Stat Exams 04/04/19 04:05 Completed Multi-Disciplinary Progress Notes: Multi-Disciplinary Progress Notes 04/04/19 16:09 Pharmacy Note by Wild Willis Please be aware of increased risk of bleeding with the addition of Mobic. Patient on Aspirin and Plavix. Initialized on 04/04/19 16:09 - END OF NOTE Assessment/Plan (1) Syncopal episodes Current Visit: Yes Status: Acute Qualifiers: Syncope type: vasovagal syncope Qualified Code(s): R55 - Syncope and collapse Assessment & Plan: Echo and carotid doppler today. Code(s): R55 - SYNCOPE AND COLLAPSE (2) Sinusitis Current Visit: Yes Status: Acute Qualifiers: Sinusitis location: pansinusitis Chronicity: subacute Qualified Code(s): J01.40 - Acute pansinusitis, unspecified Assessment & Plan: on IV levaquin. improved Code(s): J32.9 - CHRONIC SINUSITIS, UNSPECIFIED (3) Abrasion, face w/o infection Current Visit: Yes Status: Acute Code(s): S00.81XA - ABRASION OF OTHER PART OF HEAD, INITIAL ENCOUNTER (4) Bronchitis Current Visit: Yes Status: Acute Assessment & Plan: on nebs and steroid 80mg IV q6h. Stay another day, may go home tomorrow. Code(s): J40 - BRONCHITIS, NOT SPECIFIED ACUTE OR CHRONIC
[2019-04-05] MEDS: Sodium Chloride 0.9% 1000 ML 1,000 ML IV SCH ×2 (09:30→19:59)
[2019-04-05] MEDS: Mobic 7.5 MG PO SCH (09:38)
[2019-04-05] MEDS: Coreg 3.125 MG PO SCH ×2 (09:39→21:27)
[2019-04-05] MEDS: ECOTRIN 81 MG PO SCH (09:39)
[2019-04-05] MEDS: PLAVIX 75 MG Tablet PO SCH (09:39)
[2019-04-05] MEDS ORDERED: ROCEPHIN 1 Gm-D5w 50 ml Bag** 1 G/50 ML IVPB IV SCH (10:00)
[2019-04-05] MEDS ORDERED: BABY ASPIRIN 81 MG CHEW PO SCH (10:00)
[2019-04-05] MEDS ORDERED: Levofloxacin 500MG/100ML D5W 500 MG/100 ML BAG IV SCH (10:00)
[2019-04-05] MEDS ORDERED: TYLENOL EXTRA STRENGTH 500 MG PO PRN (11:36)
[2019-04-05] MEDS: NovoLIN R SQ PRN ×3 (13:09→21:27)
--- NOTE | 2019-04-05 13:26 | XRAY ---
Indication: Syncope. Two-dimensional sonogram and color Doppler imaging of the carotid arteries of the neck performed. Comparison: None Examination of the right carotid circulation demonstrates minimal intimal thickening in the distal common carotid artery. No critical stenosis or obstruction. PSV of the CCA is 116 cm/s. PSV of the ICA is 70 cm/s. ICA/CCA ratio is 0.6. Normal antegrade vertebral artery flow. Examination of the left carotid circulation demonstrates tortuous proximal common carotid artery. No focal plaquing, critical stenosis, or obstruction. PSV of the CCA is 132 cm/s. PSV of the ICA is 104 cm/s. ICA/CCA ratio is 0.8. Normal antegrade vertebral artery flow. Impression: Widely patent carotid arteries of the neck bilaterally. Velocity measurements and ratios are also negative for hemodynamically significant flow-limiting stenosis.
[2019-04-05] MEDS: ZOCOR 20MG PO SCH (21:27)
[2019-04-05] MEDS: Zestril 5 MG PO SCH (21:28)
[2019-04-06] MEDS: solu-MEDROL 125 MG IV SCH ×2 (02:21→07:00)
[2019-04-06] MEDS: Sodium Chloride 0.9% 1000 ML 1,000 ML IV SCH (05:47)
[2019-04-06] MEDS: PROVENTIL 2.5 MG/3 ML NEB IH SCH (06:55)
[2019-04-06 07:02] VITALS: PULSE 83; O2SAT 92
[2019-04-06 07:46] VITALS: BP 119/61
[2019-04-06] MEDS: NovoLIN R SQ PRN (08:39)
--- NOTE | 2019-04-06 09:34 | PCM.DS ---
Discharge Summary Date of Admission: 04/04/19 08:07 Admitting Physician: CAROLANN BARBOZA Primary Care Provider: DANIEL TAVERAS Allergies Allergies No Known Drug Allergies Allergy (Verified 04/04/19 04:09) Hospital Summary - Hospital Course Hospital Course: Pt is 63 yo male pt of mine from [facility] with CAD (hx CABG) and hyperlipidemia who was admitted through ER with a syncopal episode. He was found to have childers sinusitis and also bronchitis (has ongoing cough since the end of January). He was started on IV levaquin and IV steroids. His syncope was during a coughing fit; these have improved greatly. Pt feeling much better. Will be discharged to home on levaquin and prednisone. Carotid dopplers wnl. Echo pending. Troponins neg x 5. - Vitals & Intake/Output Vital Signs: Vital Signs Temperature 97.3 F 04/06/19 07:45 Pulse Rate 83 04/06/19 07:45 Respiratory Rate 20 04/06/19 07:45 Blood Pressure 119/61 04/06/19 07:45 O2 Sat by Pulse Oximetry 92 L 04/06/19 07:45 Intake & Output: Intake & Output 04/03/19 04/04/19 04/05/19 04/06/19 11:59 11:59 11:59 11:59 Intake Total 240 4020 4194 Output Total 1550 450 Balance 240 2470 3744 Weight 90.265 kg 89 kg 95.1 kg - Lab Result Diagrams: 04/04/19 04:19 04/04/19 21:45 Lab Results-Last 24 Hrs: Accuchecks Date 04/05/19 Date 04/05/19 Time 16:30 Time 11:30 Accucheck Value: 153 Accucheck Value: 221 Accucheck Value: 217 Micro Results-Entire Visit: Accuchecks Date 04/05/19 Date 04/05/19 Time 16:30 Time 11:30 Accucheck Value: 153 Accucheck Value: 221 Accucheck Value: 217 - Radiology Exams Ordered Rad Exams-Entire Visit: Radiology Procedures Category Date Time Status CAROTID BILATERAL [US] Routine Exams 04/05/19 08:00 Completed ECHO W/2D AND DOPPLER [US] Routine Exams 04/05/19 12:45 Taken - Procedures and Test Procedures and Tests throughout Hospitalization: Therapy Orders & Screens 04/04/19 05:52 Respiratory Therapy Assessment DAILY Comment: 04/04/19 08:53 Peak Expiratory Flow Rate ONCE Comment: Reason For Exam: Diagnosis: snycope Discharge Exam General Appearance: no apparent distress, alert Neurologic Exam: oriented x 3, cooperative Eye Exam: other (L eye with abrasion laterally) Ears, Nose, Throat Exam: moist mucous membranes Neck Exam: normal inspection Respiratory Exam: normal breath sounds, lungs clear, No crackles/rales, No rhonchi, No wheezing Cardiovascular Exam: regular rate/rhythm, normal heart sounds, No murmur Extremity Exam: No pedal edema, No swelling Skin Exam: normal color, warm, dry, No rash Final Diagnosis/Problem List - Final Discharge Diagnosis/Problem (1) Syncopal episodes Current Visit: Yes Status: Acute Assessment & Plan: I think vasovagal related to coughing. Will have pt f/u with Dr. Mallory as soon as possible however with fairly recent hx CABG. Will need outpatient stress test. Carotid dopplers wnl. Code(s): R55 - SYNCOPE AND COLLAPSE (2) Sinusitis Current Visit: Yes Status: Acute Assessment & Plan: Home on po levaquin to finish 2 weeks. Code(s): J32.9 - CHRONIC SINUSITIS, UNSPECIFIED (3) Abrasion, face w/o infection Current Visit: Yes Status: Acute Code(s): S00.81XA - ABRASION OF OTHER PART OF HEAD, INITIAL ENCOUNTER (4) Bronchitis Current Visit: Yes Status: Acute Assessment & Plan: home on prednisone. Code(s): J40 - BRONCHITIS, NOT SPECIFIED ACUTE OR CHRONIC - Discharge Disposition: Home, Self-Care Condition: Good Prescriptions: New Prednisone 20 mg [Deltasone 20 mg] 20 mg PO DAILY #17 tablet Levofloxacin [Levaquin] 500 mg PO DAILY #11 tablet Albuterol 2.5 mg/3 ml Neb [Proventil 2.5 mg/3 ml Neb] 2.5 mg IH BIDRT neb Continue Aspirin 81 gm Chew [Baby Aspirin 81 mg Chew] 81 mg PO DAILY lisinopriL [Lisinopril] 2.5 mg PO HS Clopidogrel Bisulfate 75 mg [PLAVIX 75 MG Tablet] 1 tab PO DAILY Carvedilol 3.125 mg [Coreg 3.125 MG] 1 tab PO BID Rosuvastatin Calcium [Crestor] 1 tab PO HS Multivitamin [Multivitamins] 1 each PO DAILY Follow up with: SANDY MALLORY [CONSULTING PHYSICIAN] - 04/13/19 3:30 pm DANIEL TAVERAS [Primary Care Provider] - 1 Week
[2019-04-06] MEDS: Coreg 3.125 MG PO SCH (09:39)
[2019-04-06] MEDS: Mobic 7.5 MG PO SCH (09:39)
[2019-04-06] MEDS: ECOTRIN 81 MG PO SCH (09:39)
[2019-04-06] MEDS: PLAVIX 75 MG Tablet PO SCH (09:39)
[2019-04-06 10:43] LABS: ANION GAP 10.1 MEQ/L (5-15); BLOOD UREA NITROGEN 17 mg/dL (9-20); CHLORIDE 109 mmol/L (98-107); Calcium 8.6 mg/dL (8.4-10.2); Carbon Dioxide 26 mmol/L (22-30); Creatinine 1 0.81 mg/dL (0.66-1.25); Glucose 250 mg/dL (74-106); Potassium 3.5 mmol/L (3.5-5.1); SODIUM 141 mmol/L (137-145)
--- NOTE | 2019-04-07 14:40 | ECHO ---
DATE OF PROCEDURE: 04/05/2019 CLINICAL INFORMATION: Syncope. The M-mode 2D, and Doppler echocardiogram including color flow Doppler shows the left ventricle is normal in size at 4.1 cm. There is no thrombus noted. The septal wall thickness is increased at 1.2 cm. The left ventricular posterior wall thickness is increased at 1.3 cm. There is accentuated contractility of the left ventricle. The left ventricular ejection fraction calculated to be 61%. The right ventricle is grossly normal. The left atrium is borderline dilated at 4.1 cm. The interatrial septum is intact. The right atrium is normal. The aortic valve opens well and is trileaflet. There is no aortic regurgitation present. The ascending aorta is dilated at 3.6 cm. There is mitral valve leaflet thickening associated with mild to moderate mitral regurgitation. Mitral valve prolapse cannot be excluded. The pulmonic valve is not well visualized. There is mild tricuspid regurgitation. The right ventricular systolic pressure is normal at 28 mm of [place]. There is no pericardial effusion present. IMPRESSION: 1) ACCENTUATED CONTRACTILITY OF THE LEFT VENTRICLE. 2) MILD CONCENTRIC LEFT VENTRICULAR HYPERTROPHY. 3) BORDERLINE LEFT ATRIAL DILATATION. 4) MILD TO MODERATE MITRAL REGURGITATION. 5) MILD TRICUSPID REGURGITATION. 6) NORMAL RIGHT VENTRICULAR SYSTOLIC PRESSURE.
== END 2019-04-06 10:25 | disposition home or self-care (01) ==
LOC: ED 03:41 → MED SURG 08:07
PROVIDERS: ADMIT Family Medicine; ATTEND Family Medicine
DX: R55 Syncope and collapse (principal); E78.5 Hyperlipidemia, unspecified; J32.4 Chronic pansinusitis; E78.00 Pure hypercholesterolemia, unspecified; J40 Bronchitis, not specified as acute or chronic; R07.9 Chest pain, unspecified; S00.81XA Abrasion of other part of head, initial encounter; Z95.1 Presence of aortocoronary bypass graft; Z79.01 Long term (current) use of anticoagulants; Z79.899 Other long term (current) drug therapy
CPT/HCPCS: 36000; 36415; 70450; 70486; 71046; 72125; 80048; 80053; 81001; 82962; 83036; 83605; 83880; 84132; 84484; 85025; 87631; 93005; 93041; 93306; 93880; 94150; 94640; 94760; 94762; 96360; 96361; 96365; 96367; 96368; 99285; G0378; J0696; J1956; J2930; J3480; J7609; A9270-GY

== ENCOUNTER 2020-10-04 05:03 | Emergency (ER) | payer OTHER ==
--- NOTE | 2020-10-04 06:05 | ERPHSYRPT ---
- History of Present Illness Time Seen by Provider: 10/04/20 05:35 Source: patient Exam Limitations: no limitations Patient Subjective Stated Complaint: Patient states " I have been having a deep cough for several days and this morning I got up and sat on side of bed and s tarted coughing hard and I fell backwards on bed and just wasn't sure what was going on." Triage Nursing Assessment: Patient arrived to ED and ambulated back to room without difficulty. Patient gait steady with no visual difficulties noted. Patient A/O times 4. Patient noted to have deep congested cough and sounds very stopped up. Lungs diminshed A/P in upper lobes but little air flow noted in lower bases A/P. Patient states he does get SOB when he gets into one of his c oughing spells. 02 sat upon arrival 96% on room air. Central color fair. Cap refill < 3 seconds. Respiratory regular and easy and non-labored. No S/S of acute respiratory distress noted. Patient noted to be vaccinated for COVID-19. Patient states he has had no fevers at home. + BS times 4 quads. ABD soft, round, slightly distended upon touch. Patient denies any pain or discomfort upon palpitation. Patient with no pitting edema. Patient denies any nasal drainage. Patient denies any headache. Patient denies any dizziness or chest pain. Bilateral hand psychology physician strong and equal. Bilateral pupils brisk and reactive. Patient denies any pain or discomfort. Physician History: Patient is a 64-year-old male with a history of triple bypass on May 2019 presents to our ED for evaluation of a "deep cough" for several days associated with shortness of breath. Patient states he awoke this morning at 5:30 AM. Patient sat at the edge of the bed began to cough violently and fell backwards. It sounds like patient was semiunconscious. Patient states the cough is worse when he lays flat. They have been treating patient with albuterol nebulization. Patient additionally complains of rhinorrhea and nasal congestion. Symptoms are mild to moderate in intensity. No specific worsening or improving factors. Patient is vaccinated for COVID-19. No associated nausea or vomiting. No chest pain. No fever headache or dizziness. Patient's is at bedside. She has mild URI symptomology. Patient last met with his tube cutter (Dr. Albright) in August last month. Patient states all is well. Patient voices no other complaints or concerns at this time. Timing/Duration: day(s) (Past 3 to 4 days.) Severity: moderate Modifying Factors: Improves With: nothing Associated Symptoms: shortness of breath, cough, syncope, No nausea, No vomiting, No abdominal pain, No heartburn, No diaphoresis, No chills, No chest pain, No fever, No headaches, No loss of appetite, No malaise, No rash, No seizure, No weakness Allergies/Adverse Reactions: No Known Drug Allergies Allergy (Verified 10/04/20 05:10) Home Medications: Aspirin 81 gm Chew [Baby Aspirin 81 mg Chew] 81 mg PO DAILY 11/20/15 [History] Carvedilol 3.125 mg [Coreg 3.125 MG] 1 tab PO BID 04/04/19 [History] Clopidogrel Bisulfate 75 mg [PLAVIX 75 MG Tablet] 1 tab PO DAILY 04/04/19 [History] Multivitamin [Multivitamins] 1 each PO DAILY 04/04/19 [History] Rosuvastatin Calcium [Crestor] 1 tab PO HS 04/04/19 [History] Hx Tetanus, Diphtheria Vaccination/Date Given: No Hx Influenza Vaccination/Date Given: No Hx Pneumococcal Vaccination/Date Given: No Immunizations Up to Date: Yes Travel Risk - International Travel Have you traveled outside of the country in past 3 weeks: No - Coronavirus Screening Are you exhibiting any of the following symptoms?: No Close contact with a COVID-19 positive Pt in past 14-21 Days: No - Vaccine Status Have you recieved a Covid-19 vaccination: Yes Forensic Dna Analyst: Moderna - Vaccination Dates Date of 2cond Vaccination (if applicable): 07/06/20 - Review of Systems Constitutional: No Symptoms, No Fever, No Chills Eyes: No Symptoms Ears, Nose, & Throat: No Symptoms Respiratory: No Symptoms, No Cough, No Dyspnea Cardiac: No Symptoms, No Chest Pain, No Edema, No Syncope Abdominal/Gastrointestinal: No Symptoms, No Abdominal Pain, No Nausea, No Vomiting, No Diarrhea Genitourinary Symptoms: No Symptoms, No Dysuria Musculoskeletal: No Symptoms, No Back Pain, No Neck Pain Skin: No Symptoms, No Rash Neurological: No Symptoms, No Dizziness, No Focal Weakness, No Sensory Changes Psychological: No Symptoms Endocrine: No Symptoms Hematologic/Lymphatic: No Symptoms Immunological/Allergic: No Symptoms All Other Systems: Reviewed and Negative - Past Medical History Pertinent Past Medical History: Yes Neurological History: Migraines ENT History: No Pertinent History Cardiac History: High Cholesterol, Hypertension, Other Respiratory History: No Pertinent History Endocrine Medical History: No Pertinent History Musculoskeletal History: Fractures GI Medical History: No Pertinent History History: No Pertinent History Psycho-Social History: No Pertinent History Male Reproductive Disorders: No Pertinent History Other Medical History: right leg edema- unknown cause. left middle finger reconstruction- nerve damage. borderline htn - Past Surgical History Past Surgical History: Yes Neuro Surgical History: No Pertinent History Cardiac: CABG Respiratory: No Pertinent History Gastrointestinal: No Pertinent History Genitourinary: No Pertinent History Musculoskeletal: Amputation Male Surgical History: No Pertinent History Other Surgical History: left middle finger. nasal scope with polypectomy and hemmorhage. T&A. left thumb reattachment. CABG 2017 - Social History Smoking Status: Former smoker How long have you smoked: 40 Exposure to second hand smoke: No Drug Use: none Patient Lives Alone: No - Nursing Vital Signs Nursing Vital Signs: Initial Vital Signs Temperature 98.1 F 10/04/20 05:14 Pulse Rate 84 10/04/20 05:14 Respiratory Rate 22 10/04/20 05:14 Blood Pressure 148/84 10/04/20 05:14 O2 Sat by Pulse Oximetry 96 10/04/20 05:14 Pain Scale Pain Intensity 0 - Physical Exam General Appearance: no apparent distress, alert, other (Patient sitting up in bed. He is conversant well-appearing and in no acute distress.) Eye Exam: PERRL/EOMI, eyes nml inspection Ears, Nose, Throat Exam: normal ENT inspection, TMs normal, pharynx normal, moist mucous membranes, No dry mucous membranes, No TM abnormal (R), No TM abnormal (L), No pharyngeal erythema, No tonsillar exudate Neck Exam: normal inspection, non-tender, supple, full range of motion Respiratory Exam: normal breath sounds, lungs clear, No respiratory distress Cardiovascular Exam: regular rate/rhythm, normal heart sounds, normal peripheral pulses Gastrointestinal/Abdomen Exam: soft, normal bowel sounds, No tenderness, No mass Back Exam: normal inspection, normal range of motion, No CVA tenderness, No vertebral tenderness Extremity Exam: normal inspection, normal range of motion, pelvis stable, other (Lower extremity minimally more swollen than right however this is chronic due to CABG. Negative Homans' sign bilaterally.), No calf tenderness, No gayathri's sign Neurologic Exam: alert, oriented x 3, cooperative, normal mood/affect, sensation nml, No motor deficits Skin Exam: normal color, warm, dry, No rash Lymphatic Exam: No adenopathy SpO2 Interpretation: normal SpO2: 96 O2 Delivery: Room Air - Course Nursing assessment & vital signs reviewed: Yes EKG Interpreted by Me: RATE (70), Sinus Rhythm, NORMAL AXIS, NORMAL INTERVALS - Radiology Exams Chest X-ray Interpretation: Interpreted by me (No focal infiltrate or consolidation. No effusion. Normal cardiac silhouette. Scattered lung granulomas. Sternotomy wires. Stable chest with chronic features.) Ordered Tests: Active Orders 24 hr Category Date Time Status Parts Delivery Driver STAT Care 10/04/20 05:51 Active EKG-ER Only STAT Care 10/04/20 05:48 Active IV Insertion STAT Care 10/04/20 05:48 Active Pulse Oximetry (ED) STAT Care 10/04/20 05:48 Active CHEST 1 VIEW (PORTABLE) Stat Exams 10/04/20 05:50 Taken CBC W DIFF Stat Lab 10/04/20 06:10 Completed CMP Stat Lab 10/04/20 06:10 Completed D-DIMER QUANTITATIVE Stat Lab 10/04/20 06:10 Completed Manual Differential NC Stat Lab 10/04/20 06:10 Completed NT PRO BNP Stat Lab 10/04/20 06:10 Completed TROPONIN Q3H Lab 10/04/20 06:10 Completed TROPONIN Q3H Lab 10/04/20 09:00 Ordered TROPONIN Q3H Lab 10/04/20 12:00 Ordered TROPONIN Q3H Lab 10/04/20 15:00 Ordered TROPONIN Q3H Lab 10/04/20 18:00 Ordered Medication Summary Discontinued Medications Generic Name Dose Route Start Last Admin Trade Name Freq PRN Reason Stop Dose Admin Albuterol/Ipratropium 3 ml 10/04/20 07:08 Duoneb 0.5-3 Mg/3 Ml Neb IH 10/04/20 07:09 STAT ONE Lab/Rad Data: Laboratory Result Diagrams 10/04/20 06:10 10/04/20 06:10 Laboratory Results 0710/04/20 10/04/20 Range/Units 06:10 06:10 06:10 WBC (4.0-10.5) K/mm3 RBC (4.1-5.6) M/mm3 Hgb (12.5-18.0) gm/dl Hct (42-50) % MCV (78-100) fl MCH (26-32) pg MCHC (32-36) g/dl RDW (11.5-14.0) % Plt Count (150-450) K/mm3 MPV (7.5-11.0) fl Gran % (36.0-66.0) % Eos # (Auto) (0-0.5) Absolute Lymphs (auto) (1.0-4.6) Absolute Monos (auto) (0.0-1.3) Lymphocytes % (24.0-44.0) % Monocytes % (0.0-12.0) % Eosinophils % (0.00-5.0) % Basophils % (0.0-0.4) % Absolute Granulocytes (1.4-6.9) Basophils # (0-0.4) D-Dimer 474 (215-500) ng/mL Sodium 141 (137-145) mmol/L Potassium 4.0 (3.5-5.1) mmol/L Chloride 105 (98-107) mmol/L Carbon Dioxide 26 (22-30) mmol/L Anion Gap 14.2 (5-15) MEQ/L BUN 12 (9-20) mg/dL Creatinine 0.98 (0.66-1.25) mg/dL Estimated GFR > 60.0 ML/MIN Glucose 103 (74-106) mg/dL Calcium 9.0 (8.4-10.2) mg/dL Total Bilirubin 0.40 (0.2-1.3) mg/dL AST 33 (17-59) U/L ALT 29 (0-50) U/L Alkaline Phosphatase 85 (38-126) U/L Troponin I < 0.012 (0.000-0.034) ng/mL NT-Pro-B Natriuret Pep 60.0 (0-900) pg/mL Serum Total Protein 6.8 (6.3-8.2) g/dL Albumin 4.1 (3.5-5.0) g/dL 10/04/20 Range/Units 06:10 WBC 8.7 (4.0-10.5) K/mm3 RBC 4.39 (4.1-5.6) M/mm3 Hgb 13.6 (12.5-18.0) gm/dl Hct 43.2 (42-50) % MCV 98.4 (78-100) fl MCH 31.0 (26-32) pg MCHC 31.5 L (32-36) g/dl RDW 13.7 (11.5-14.0) % Plt Count 216 (150-450) K/mm3 MPV 10.6 (7.5-11.0) fl Gran % 63.7 (36.0-66.0) % Eos # (Auto) 0.70 H (0-0.5) Absolute Lymphs (auto) 1.51 (1.0-4.6) Absolute Monos (auto) 0.90 (0.0-1.3) Lymphocytes % 17.3 L (24.0-44.0) % Monocytes % 10.3 (0.0-12.0) % Eosinophils % 8.0 H (0.00-5.0) % Basophils % 0.7 (0.0-0.4) % Absolute Granulocytes 5.57 (1.4-6.9) Basophils # 0.06 (0-0.4) D-Dimer (215-500) ng/mL Sodium (137-145) mmol/L Potassium (3.5-5.1) mmol/L Chloride (98-107) mmol/L Carbon Dioxide (22-30) mmol/L Anion Gap (5-15) MEQ/L BUN (9-20) mg/dL Creatinine (0.66-1.25) mg/dL Estimated GFR ML/MIN Glucose (74-106) mg/dL Calcium (8.4-10.2) mg/dL Total Bilirubin (0.2-1.3) mg/dL AST (17-59) U/L ALT (0-50) U/L Alkaline Phosphatase (38-126) U/L Troponin I (0.000-0.034) ng/mL NT-Pro-B Natriuret Pep (0-900) pg/mL Serum Total Protein (6.3-8.2) g/dL Albumin (3.5-5.0) g/dL - Progress Progress: improved Progress Note: Patient reassessed. Patient still coughing. Chest x-ray appears unchanged however formal read pending. EKG appears unchanged. D-dimer negative per initial troponin negative. We will swab patient for possible pertussis. Patient endorsed to Dr. Hernandez at approximately 7 AM. We will await a second troponin. Dr. Hernandez will make final disposition. Consider treating with a Z leela and short course of steroids. 10/04/20 07:16 Counseled pt/family regarding: diagnosis, need for follow-up, rad results - Departure Clinical Impression: Cough, URI (upper respiratory infection), Post-tussive syncope Condition: Stable Critical Care Time: No Referrals: DANIEL HARRISON [Primary Care Provider] -
[2020-10-04 06:21] LABS: Absolute Neutrophil Ct (ANC) 5.57 (1.4-6.9); BASOPHIL % 0.7 % (0.0-0.4); Basophil (Absolute #) 0.06 (0-0.4); Hematocrit 43.2 % (42-50); Hemoglobin 13.6 gm/dl (12.5-18.0); Lymphocyte (Absolute #) 1.51 (1.0-4.6); Lymphocytes % 17.3 % (24.0-44.0); Mean Cell Volume 98.4 fl (78-100); Mean Corpuscular Hgb Concent. 31.5 g/dl (32-36); Mean Platelet Volume 10.6 fl (7.5-11.0); Monocytes % 10.3 % (0.0-12.0); Neutrophil % 63.7 % (36.0-66.0); Platelet Count 216 K/mm3 (150-450); Red Blood Count 4.39 M/mm3 (4.1-5.6); Red Cell Distribution Width 13.7 % (11.5-14.0); White Blood Count 8.7 K/mm3 (4.0-10.5)
[2020-10-04 06:50] LABS: ALBUMIN 4.1 g/dL (3.5-5.0); ALKALINE PHOSPHATASE 85 U/L (38-126); ANION GAP 14.2 MEQ/L (5-15); BLOOD UREA NITROGEN 12 mg/dL (9-20); CHLORIDE 105 mmol/L (98-107); Carbon Dioxide 26 mmol/L (22-30); Creatinine 1 0.98 mg/dL (0.66-1.25); EST GLOMERULAR FILTRATION RATE > 60.0 ML/MIN; Glucose 103 mg/dL (74-106); SGOT/AST 33 U/L (17-59); SGPT/ALT 29 U/L (0-50); SODIUM 141 mmol/L (137-145); Total Protein 6.8 g/dL (6.3-8.2)
[2020-10-04] MEDS ORDERED: DUONEB 0.5-3 MG/3 ml Neb IH ONE ×2 (07:08→07:16)
--- NOTE | 2020-10-04 09:01 | XRAY ---
Indication: Cough. Comparison: April 04, 2019. Portable chest unchanged again demonstrating minimal lingula fibrosis/scarring and a few tiny scattered calcified granulomas. No focal infiltrate, consolidation, or large effusion. Heart not enlarged again with CABG surgery. Bony thorax intact again with mild osteopenia and degenerative changes. Impression: Continued nonacute chest with chronic features.
[2020-10-04 10:10] VITALS: BP 135/70; PULSE 60; O2SAT 99
[2020-10-10 09:13] LABS: Bordetella pertussis DNA Negative (Negative)
[2020-10-10 09:55] LABS: Bordetella parapertussis DNA Negative (Negative)
== END 2020-10-04 10:25 | disposition home or self-care (01) ==
LOC: ED 05:03
DX: R05 Cough (principal); J06.9 Acute upper respiratory infection, unspecified
CPT/HCPCS: 36000; 36415; 71045; 80053; 83880; 84484; 85025; 85379; 87798; 93005; 93041; 94640; 94760; 99284; A9270-GY

== ENCOUNTER 2021-12-07 11:01 | Emergency (ER) | payer MEDICARE ==
--- NOTE | 2021-12-07 11:08 | ERPHSYRPT ---
- History of Present Illness Time Seen by Provider: 12/07/21 11:07 Source: patient Exam Limitations: no limitations Physician History: This is a 66-year-old white male patient of Dr. Jeremy Hoffman has a history of hypertension, hyperlipidemia, migraine headaches and coronary disease (CABG 2018) and is on Plavix. Patient began having left-sided flank pain last evenin g. He use a heating pad to the area and the pain seemed to subside but not completely. This morning the pain was worse and he had pain in the left lower quadrant as well. The patient also noticed hematuria this morning. Patient does not have chest pain or shortness of breath. Patient has not had anything like this before. He has been nauseated intermittently but has had no vomiting. Timing/Duration: yesterday Quality: sharpness Onset Location: LLQ, left flank Pain Radiation: LLQ, left flank Severity of Pain-Max: moderate Severity of Pain-Current: moderate Modifying Factors: Improves With: nothing Associated Symptoms: abdominal pain (Left lower quadrant), nausea, lower back pain (Left flank), No vomiting Prior abdominal problems: none Sexual intercourse history: non-contributory Allergies/Adverse Reactions: No Known Drug Allergies Allergy (Verified 12/07/21 11:29) Home Medications: Aspirin 81 gm Chew [Baby Aspirin 81 mg Chew] 81 mg PO DAILY 11/20/15 [History] Carvedilol 3.125 mg [Coreg 3.125 MG] 1 tab PO BID 04/04/19 [History] Clopidogrel Bisulfate [PLAVIX Tablet] 1 tab PO DAILY 04/04/19 [History] Multivitamin [Multivitamins] 1 each PO DAILY 04/04/19 [History] Rosuvastatin Calcium [Crestor] 1 tab PO HS 04/04/19 [History] Hx Tetanus, Diphtheria Vaccination/Date Given: No Hx Influenza Vaccination/Date Given: No Hx Pneumococcal Vaccination/Date Given: No Travel Risk - International Travel Have you traveled outside of the country in past 3 weeks: No - Coronavirus Screening Are you exhibiting any of the following symptoms?: No Close contact with a COVID-19 positive Pt in past 14-21 Days: No - Vaccine Status Have you recieved a Covid-19 vaccination: Yes Polishing Machine Tender: Moderna - Vaccination Dates Date of 2cond Vaccination (if applicable): 07/06/20 - Past Medical History Pertinent Past Medical History: Yes Neurological History: Migraines ENT History: No Pertinent History Cardiac History: High Cholesterol, Hypertension, Other Respiratory History: No Pertinent History Endocrine Medical History: No Pertinent History Musculoskeletal History: Fractures GI Medical History: No Pertinent History History: No Pertinent History Psycho-Social History: No Pertinent History Male Reproductive Disorders: No Pertinent History Other Medical History: right leg edema- unknown cause. left middle finger reconstruction- nerve damage. borderline htn - Past Surgical History Past Surgical History: Yes Neuro Surgical History: No Pertinent History Cardiac: CABG Respiratory: No Pertinent History Gastrointestinal: No Pertinent History Genitourinary: No Pertinent History Musculoskeletal: Amputation Male Surgical History: No Pertinent History Other Surgical History: left middle finger. nasal scope with polypectomy and hemmorhage. T&A. left thumb reattachment. CABG 2017 - Social History Smoking Status: Former smoker How long have you smoked: 40 Exposure to second hand smoke: No Drug Use: none Patient Lives Alone: No - Review of Systems Constitutional: No Symptoms Eyes: No Symptoms Ears, Nose, & Throat: No Symptoms Respiratory: No Symptoms Cardiac: No Symptoms Abdominal/Gastrointestinal: Abdominal Pain (Left lower quadrant) Genitourinary Symptoms: Hematuria, Flank Pain (Left) Musculoskeletal: No Symptoms Skin: No Symptoms Neurological: No Symptoms Psychological: No Symptoms Endocrine: No Symptoms Hematologic/Lymphatic: No Symptoms Immunological/Allergic: No Symptoms All Other Systems: Reviewed and Negative - Nursing Vital Signs Nursing Vital Signs: Initial Vital Signs Temperature 98 F 12/07/21 11:29 Pulse Rate 88 12/07/21 11:29 Respiratory Rate 20 12/07/21 11:29 Blood Pressure 150/92 12/07/21 11:29 O2 Sat by Pulse Oximetry 95 12/07/21 11:29 Pain Scale Pain Intensity 1 - Physical Exam General Appearance: mild distress, alert, anxiety Eye Exam: PERRL/EOMI, eyes nml inspection Ears, Nose, Throat Exam: normal ENT inspection, moist mucous membranes Neck Exam: normal inspection, non-tender, supple, full range of motion Respiratory Exam: normal breath sounds, lungs clear, airway intact, No chest tenderness, No respiratory distress Cardiovascular Exam: regular rate/rhythm, normal heart sounds, normal peripheral pulses Gastrointestinal/Abdomen Exam: soft, normal bowel sounds, tenderness (Mild left lower quadrant), No guarding, No rebound Rectal Exam: not done Back Exam: normal inspection, normal range of motion, CVA tenderness (Left), No vertebral tenderness Extremity Exam: normal inspection, normal range of motion, pelvis stable Neurologic Exam: alert, oriented x 3, cooperative, textile machinery instructor II-XII nml as tested, normal mood/affect, nml cerebellar function, nml station & gait, sensation nml Skin Exam: normal color, warm, dry Lymphatic Exam: No adenopathy SpO2 Interpretation: normal O2 Delivery: Room Air - Course Nursing assessment & vital signs reviewed: Yes Ordered Tests: Active Orders 24 hr Category Date Time Status IV Insertion STAT Care 12/07/21 11:38 Active ABDOMEN AND PELVIS W/0 CONTRAS [CT] Stat Exams 12/07/21 11:38 Taken AMYLASE Stat Lab 12/07/21 11:45 Completed CBC W DIFF Stat Lab 12/07/21 11:45 Completed CMP Stat Lab 12/07/21 11:45 Completed CULTURE,URINE Stat Lab 12/07/21 11:45 Received LIPASE Stat Lab 12/07/21 11:45 Completed UA W/RFX CULTURE Stat Lab 12/07/21 11:45 Completed Medication Summary Discontinued Medications Generic Name Dose Route Start Last Admin Trade Name Freq PRN Reason Stop Dose Admin Hydromorphone HCl 1 mg 12/07/21 11:38 12/07/21 11:51 Hydromorphone 1 Mg/1ml Inj 1 Mg/Ml Syringe IV 12/07/21 11:39 1 mg STAT ONE Administration Hydromorphone HCl Confirm 12/07/21 11:50 Hydromorphone 1 Mg/1ml Inj 1 Mg/Ml Syringe Administered 12/07/21 11:51 Dose 1 mg .ROUTE .STK-MED ONE Sodium Chloride 1,000 mls @ 999 mls/hr 12/07/21 11:38 12/07/21 11:52 Sodium Chloride 0.9% 1000 Ml IV 12/07/21 12:38 999 mls/hr .Q1H1M STA Administration Sodium Chloride Confirm 12/07/21 11:50 Sodium Chloride 0.9% 1000 Ml Administered 12/07/21 11:51 Dose 1,000 mls @ ud .ROUTE .STK-MED ONE Ondansetron HCl 4 mg 12/07/21 11:38 12/07/21 11:51 Ondansetron Hcl 4 Mg/2 Ml Vial IV 12/07/21 11:39 4 mg STAT ONE Administration Ondansetron HCl Confirm 12/07/21 11:50 Ondansetron Hcl 4 Mg/2 Ml Vial Administered 12/07/21 11:51 Dose 4 mg .ROUTE .STK-MED ONE Lab/Rad Data: Laboratory Result Diagrams 12/07/21 11:45 12/07/21 11:45 Laboratory Results 12/07/21 12/07/21 12/07/21 Range/Units 11:45 11:45 11:45 WBC 14.8 H (4.0-10.5) x10^3/uL RBC 4.51 (4.1-5.6) x10^6/uL Hgb 14.4 (12.5-18.0) g/dL Hct 43.5 (42-50) % MCV 96.5 (78-100) fL MCH 31.9 (26-32) pg MCHC 33.1 (32-36) g/dL RDW 13.2 (11.5-14.0) % Plt Count 234 (150-450) x10^3/uL MPV 10.6 (7.5-11.0) fL Gran % 78.1 H (36.0-66.0) % Immature Gran % (Auto) 0.5 H (0.00-0.4) % Nucleat RBC Rel Count 0.0 (0.00-0.1) % Eos # (Auto) 0.47 (0-0.5) x10^3/uL Immature Gran # (Auto) 0.07 H (0.00-0.03) x10^3u/L Absolute Lymphs (auto) 1.49 (1.0-4.6) x10^3/uL Absolute Monos (auto) 1.11 (0.0-1.3) x10^3/uL Absolute Nucleated RBC 0.00 (0.00-0.01) x10^3u/L Lymphocytes % 10.0 L (24.0-44.0) % Monocytes % 7.5 (0.0-12.0) % Eosinophils % 3.2 (0.00-5.0) % Basophils % 0.7 (0.0-0.4) % Absolute Granulocytes 11.60 H (1.4-6.9) x10^3/uL Basophils # 0.10 (0-0.4) x10^3/uL Sodium 138 (137-145) mmol/L Potassium 4.2 (3.5-5.1) mmol/L Chloride 106 (98-107) mmol/L Carbon Dioxide 21 L (22-30) mmol/L Anion Gap 14.5 (5-15) MEQ/L BUN 19 (9-20) mg/dL Creatinine 1.23 (0.66-1.25) mg/dL Estimated GFR > 60.0 ML/MIN Glucose 115 H (74-106) mg/dL Calcium 8.8 (8.4-10.2) mg/dL Total Bilirubin 0.90 (0.2-1.3) mg/dL AST 31 (17-59) U/L ALT 28 (0-50) U/L Alkaline Phosphatase 76 (38-126) U/L Serum Total Protein 7.3 (6.3-8.2) g/dL Albumin 4.4 (3.5-5.0) g/dL Amylase 79 (30-110) U/L Lipase 91 (23-300) U/L Urinalys Dipstick Clnc MAIN LAB Urine Color YELLOW (YELLOW) Urine Appearance SLIGHTLY CLOUDY (CLEAR) Urine pH 5.5 (5-6) Ur Specific [place] 1.025 (1.005-1.025) POC Urine Protein Conf 100 (Negative) Urine Ketones NEGATIVE (NEGATIVE) Urine Nitrite NEGATIVE (NEGATIVE) Urine Bilirubin SMALL (NEGATIVE) Urine Urobilinogen 0.2 (0-1) mg/dL Urine Leukocytes NEGATIVE (NEGATIVE) Urine WBC (Auto) 6-10 (0-5) /HPF Urine RBC (Auto) >101 (0-2) /HPF U Epithel Cells (Auto) RARE (FEW) /HPF Urine Bacteria (Auto) FEW (NEGATIVE) /HPF Urine RBC LARGE (0-5) Ish/ul Unidentified Crystals 25-50 (NEGATIVE) /HPF Other Casts (Auto) 5-10 (NEGATIVE) /LPF Urine Mucus (Auto) SLIGHT (NEGATIVE) /HPF Ur Culture Indicated? YES Urine Glucose NEGATIVE (NEGATIVE) mg/dL - Progress Progress: improved, pain not gone completely Progress Note: 12/07/21 13:08 CAT scan of the abdomen pelvis without contrast shows a 3 mm distal ureteral calculus at the ureterovesical junction. There is evidence of some obstructive uropathy with periureteral and perinephric stranding. Clinically, the patient is improving. We will send a prescription for [place] 5/325 and Flomax to his pharmacy. He will follow-up with his urologist on 12/09/2021. If his symptoms worsen he will return to an emergency department. Counseled pt/family regarding: lab results, diagnosis, need for follow-up, rad results - Departure Departure Disposition: Home Clinical Impression: Ureteral calculus, left Condition: Stable Critical Care Time: No Referrals: DANIEL PEÑA [Primary Care Provider] - Follow up/PCP as directed Additional Instructions: Drink plenty of fluids. Take your medication as prescribed. Follow-up with urologist on 12/09/2021 for further evaluation management. If your symptoms worsen prior to that date, return to the emergency department for further evaluation and management. Prescriptions: Hydrocodone/APAP 5/325 [[place] 5/325 mg] 1 each PO Q8H PRN PRN #6 tablet MDD 3 PRN Reason: Pain Tamsulosin HCl 0.4 mg [Flomax 0.4 MG] 0.4 mg PO DAILY #7 cap
[2021-12-07] MEDS ORDERED: Hydromorphone 1 mg/ml Injection IV ONE ×2 (11:38→13:06)
[2021-12-07] MEDS ORDERED: Zofran 4 MG/2 ML VIAL IV ONE (11:38)
[2021-12-07] MEDS ORDERED: Sodium Chloride 0.9% 1000 ML 1,000 ML IV STA (11:38)
[2021-12-07] MEDS ORDERED: Zofran 4 MG/2 ML VIAL ONE (11:50)
[2021-12-07] MEDS ORDERED: Sodium Chloride 0.9% 1000 ML 1,000 ML ONE (11:50)
[2021-12-07] MEDS ORDERED: Hydromorphone 1 mg/ml Injection ONE ×2 (11:50→13:15)
[2021-12-07 12:08] LABS: Eosinophil % 3.2 % (0.00-5.0); Eosinophil (Absolute #) 0.47 x10^3/uL (0-0.5); Hematocrit 43.5 % (42-50); Hemoglobin 14.4 g/dL (12.5-18.0); Lymphocyte (Absolute #) 1.49 x10^3/uL (1.0-4.6); Mean Cell Volume 96.5 fL (78-100); Mean Corpuscular Hemoglobin 31.9 pg (26-32); Mean Corpuscular Hgb Concent. 33.1 g/dL (32-36); Mean Platelet Volume 10.6 fL (7.5-11.0); Monocyte (Absolute #) 1.11 x10^3/uL (0.0-1.3); Monocytes % 7.5 % (0.0-12.0); Neutrophil % 78.1 % (36.0-66.0); Platelet Count 234 x10^3/uL (150-450); Red Blood Count 4.51 x10^6/uL (4.1-5.6); Red Cell Distribution Width 13.2 % (11.5-14.0); White Blood Count 14.8 x10^3/uL (4.0-10.5)
[2021-12-07 12:11] LABS: ALBUMIN 4.4 g/dL (3.5-5.0); ALKALINE PHOSPHATASE 76 U/L (38-126); AMYLASE 79 U/L (30-110); ANION GAP 14.5 MEQ/L (5-15); BLOOD UREA NITROGEN 19 mg/dL (9-20); CHLORIDE 106 mmol/L (98-107); Calcium 8.8 mg/dL (8.4-10.2); Carbon Dioxide 21 mmol/L (22-30); Creatinine 1 1.23 mg/dL (0.66-1.25); EST GLOMERULAR FILTRATION RATE > 60.0 ML/MIN; Glucose 115 mg/dL (74-106); LIPASE 91 U/L (23-300); Potassium 4.2 mmol/L (3.5-5.1); SGOT/AST 31 U/L (17-59); SGPT/ALT 28 U/L (0-50); SODIUM 138 mmol/L (137-145); Total Protein 7.3 g/dL (6.3-8.2)
[2021-12-07 12:20] LABS: Appearance SLIGHTLY CLOUDY (CLEAR); Bilirubin SMALL (NEGATIVE); Dipstick done @ ? MAIN LAB; Glucose NEGATIVE (NEGATIVE); Ketones NEGATIVE (NEGATIVE); Nitrite NEGATIVE (NEGATIVE); Ph 5.5 (5-6); Protein,Urine Dip 100 (Negative); RBC LARGE Ery/ul (0-5); Specific Gravity 1.025 (1.005-1.025); Urobilinogen 0.2 mg/dL (0-1)
[2021-12-07 12:22] LABS: Bacteria FEW /HPF (NEGATIVE); Crystals Unidentified 25-50 /HPF (NEGATIVE); Epithelial Cells RARE /HPF (FEW); Mucus SLIGHT /HPF (NEGATIVE)
[2021-12-07 12:28] LABS: RBC >101 /HPF (0-2); Urine Cultured Indicated? YES
[2021-12-07] MEDS ORDERED: Flomax 0.4 MG PO ONE (13:07)
[2021-12-07] MEDS ORDERED: Flomax 0.4 MG ONE (13:14)
[2021-12-07 13:54] VITALS: BP 136/83; PULSE 67; O2SAT 95
--- NOTE | 2021-12-07 21:03 | XRAY ---
Indication: Left flank pain and hematuria 10 days. Multiple contiguous axial images obtained through the abdomen and pelvis without contrast using renal stone protocol. Comparison: None Lung bases demonstrates minimal subsegmental atelectasis/scarring and small right right base calcified granulomas. Heart not enlarged. Right kidney demonstrates nonobstructing calculi, largest midpole measuring 1.7 cm and a 1 cm midpole cyst. Left lower renal calyx demonstrates punctate calculus. Urinary bladder demonstrates a 3 mm calculus adjacent to the left UVJ. Left kidney is hydronephrotic with mild perinephric stranding consistent with recent passage of said calculus. No free fluid/air. Noncontrasted stomach and bowel loops appear nonobstructed. Gallbladder demonstrates a few stones in the dependent portion, largest 1.2 cm. Splenic calcified granulomas. Remaining liver, gallbladder, pancreas, spleen, adrenal glands, kidneys, ureters, and bladder are unremarkable for noncontrast exam. Mild scattered aortoiliac calcifications without AAA. Osseous structures intact with mild degenerative changes throughout the thoracolumbar spine. Impression: 1. 3 mm left urinary bladder calculus with mild left-sided hydronephrosis. Additional bilateral renal calculi and incidental right renal cyst. 2. Chronic findings gallstones, arteriosclerotic disease, chronic bony findings, and old granulomatous disease. Comment: Preliminary interpretation made by [facility]. No critical discrepancy.
== END 2021-12-07 13:55 | disposition home or self-care (01) ==
LOC: ED 11:01
DX: N20.1 Calculus of ureter (principal); R10.32 Left lower quadrant pain; R31.9 Hematuria, unspecified; R11.0 Nausea; I10 Essential (primary) hypertension; E78.5 Hyperlipidemia, unspecified; Z79.02 Long term (current) use of antithrombotics/antiplatelets; Z79.899 Other long term (current) drug therapy; Z79.891 Long term (current) use of opiate analgesic
CPT/HCPCS: 36000; 36415; 74176; 80053; 81015; 82150; 83690; 85025; 87086; 96360; 96374; 96375; 96376; 99284; J1170; J2405; A9270-GY

== ENCOUNTER 2024-04-22 12:56 | Emergency (ER) | payer MEDICARE ==
--- NOTE | 2024-04-22 13:10 | ERPHSYRPT ---
- History of Present Illness Time Seen by Provider: 04/22/24 13:10 Source: patient, family Exam Limitations: no limitations Physician History: This is a 68-year-old white male patient of nurse practitioner Mahendra and arrives to the emergency department by private vehicle accompanied by his spouse for relatively sudden onset of right flank pain at 830 this morning which radiated into his right groin. The pain is significant. It is similar to the pain he had on the left side in the past when he had a ureteral calculus. Patient is on Plavix. He denies chest pain and he denies shortness of breath. Patient has a history of CABG, hyperlipidemia, hypertension, asthma and migraine headaches. Timing/Duration: today Activites at Onset: none Quality: aching, throbbing Onset Location: right flank Pain Radiation: other (Radiation of pain in his right scrotum/testicle) Severity of Pain-Max: moderate Severity of Pain-Current: moderate Modifying Factors: Improves With: nothing Associated Symptoms: denies symptoms Sexual intercourse history: non-contributory Allergies/Adverse Reactions: No Known Drug Allergies Allergy (Verified 04/22/24 13:11) Home Medications: Aspirin 81 gm Chew [Baby Aspirin 81 mg Chew] 81 mg PO DAILY 11/20/15 [History] Carvedilol 3.125 mg [Coreg 3.125 MG] 1 tab PO BID 04/04/19 [History] Clopidogrel Bisulfate [PLAVIX Tablet] 1 tab PO DAILY 04/04/19 [History] Multivitamin [Multivitamins] 1 each PO DAILY 04/04/19 [History] Rosuvastatin Calcium [Crestor] 1 tab PO HS 04/04/19 [History] Hx Tetanus, Diphtheria Vaccination/Date Given: No Hx Influenza Vaccination/Date Given: No Hx Pneumococcal Vaccination/Date Given: No Travel Risk - International Travel Have you traveled outside of the country in past 3 weeks: No - Emerging Infectious Disease Are you exhibiting symptoms associated with any current EIDs: No - Past Medical History Pertinent Past Medical History: Yes Neurological History: Migraines ENT History: No Pertinent History Cardiac History: High Cholesterol, Hypertension, Other Respiratory History: No Pertinent History Endocrine Medical History: No Pertinent History Musculoskeletal History: Fractures GI Medical History: No Pertinent History History: No Pertinent History Psycho-Social History: No Pertinent History Male Reproductive Disorders: No Pertinent History Other Medical History: right leg edema- unknown cause. left middle finger reconstruction- nerve damage. borderline htn - Past Surgical History Past Surgical History: Yes Neuro Surgical History: No Pertinent History Cardiac: CABG Respiratory: No Pertinent History Gastrointestinal: No Pertinent History Genitourinary: No Pertinent History Musculoskeletal: Amputation Male Surgical History: No Pertinent History Other Surgical History: left middle finger. nasal scope with polypectomy and hemmorhage. T&A. left thumb reattachment. CABG 2017 - Social History Smoking Status: Former smoker How long have you smoked: 40 Exposure to second hand smoke: No Drug Use: none Patient Lives Alone: No - Review of Systems Constitutional: No Symptoms Eyes: No Symptoms Ears, Nose, & Throat: No Symptoms Respiratory: No Symptoms Cardiac: No Symptoms Abdominal/Gastrointestinal: No Symptoms Genitourinary Symptoms: Flank Pain (Right side) Musculoskeletal: No Symptoms Skin: No Symptoms Neurological: No Symptoms Psychological: No Symptoms Endocrine: No Symptoms Hematologic/Lymphatic: No Symptoms Immunological/Allergic: No Symptoms All Other Systems: Reviewed and Negative - Nursing Vital Signs Nursing Vital Signs: Initial Vital Signs Pulse Rate 63 04/22/24 13:05 Respiratory Rate 18 04/22/24 13:05 Blood Pressure 140/70 04/22/24 13:05 O2 Sat by Pulse Oximetry 92 L 04/22/24 13:05 Pain Scale Pain Intensity 3 - Physical Exam General Appearance: no apparent distress, alert, anxiety Eye Exam: PERRL/EOMI, eyes nml inspection Ears, Nose, Throat Exam: normal ENT inspection, moist mucous membranes Neck Exam: normal inspection, non-tender, supple, full range of motion Respiratory Exam: normal breath sounds, lungs clear, No chest tenderness, No respiratory distress Cardiovascular Exam: regular rate/rhythm, normal heart sounds, normal peripheral pulses Gastrointestinal/Abdomen Exam: soft, normal bowel sounds, No tenderness Rectal Exam: not done Back Exam: normal inspection, normal range of motion, CVA tenderness (Mild right side flank pain), No vertebral tenderness Extremity Exam: normal inspection, normal range of motion, pelvis stable Neurologic Exam: alert, oriented x 3, cooperative, 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 as tested, nml cerebellar function, nml station & gait, sensation nml Skin Exam: normal color, warm, dry Lymphatic Exam: No adenopathy SpO2 Interpretation: normal O2 Delivery: Room Air - Course Nursing assessment & vital signs reviewed: Yes Ordered Tests: Active Orders 24 hr Category Date Time Status IV Insertion STAT Care 04/22/24 13:10 Active ABDOMEN AND PELVIS W/0 CONTRAS [CT] Stat Exams 04/22/24 13:11 Completed AMYLASE Stat Lab 04/22/24 13:20 Completed CBC W DIFF Stat Lab 04/22/24 13:20 Completed CMP Stat Lab 04/22/24 13:20 Completed CULTURE,URINE Stat Lab 04/22/24 15:06 Received LIPASE Stat Lab 04/22/24 13:20 Completed UA W/RFX UR CULTURE Stat Lab 04/22/24 15:06 Completed Medication Summary Discontinued Medications Generic Name Dose Route Start Last Admin Trade Name Freq PRN Reason Stop Dose Admin Cephalexin HCl 500 mg 04/22/24 15:37 Cephalexin Mh500 Mg Capsule PO 04/22/24 15:38 STAT ONE Hydromorphone HCl 1 mg 04/22/24 13:10 04/22/24 13:17 Hydromorphone 1 Mg/1ml Inj IV 04/22/24 13:11 1 mg STAT ONE Administration Hydromorphone HCl Confirm 04/22/24 13:13 Hydromorphone 1 Mg/1ml Inj Administered 04/22/24 13:14 Dose 1 mg .ROUTE .STK-MED ONE Sodium Chloride 1,000 mls @ 999 mls/hr 04/22/24 13:10 04/22/24 13:16 Sodium Chloride 0.9% 1000 Ml IV 04/22/24 14:10 999 mls/hr .Q1H1M STA Administration Sodium Chloride Confirm 04/22/24 13:14 Sodium Chloride 0.9% 1000 Ml Administered 04/22/24 13:15 Dose 1,000 mls @ ud .ROUTE .STK-MED ONE Ondansetron HCl 4 mg 04/22/24 13:10 04/22/24 13:17 Ondansetron Hcl 4 Mg/2 Ml Vial IV 04/22/24 13:11 4 mg STAT ONE Administration Ondansetron HCl Confirm 04/22/24 13:13 Ondansetron Hcl 4 Mg/2 Ml Vial Administered 04/22/24 13:14 Dose 4 mg .ROUTE .STK-MED ONE Tamsulosin HCl 0.4 mg 04/22/24 14:12 04/22/24 14:28 Tamsulosin Hcl 0.4 Mg Cap PO 04/22/24 14:13 0.4 mg STAT ONE Administration Tamsulosin HCl Confirm 04/22/24 14:27 Tamsulosin Hcl 0.4 Mg Cap Administered 04/22/24 14:28 Dose 0.4 mg .ROUTE .[facility]-MED ONE Lab/Rad Data: Laboratory Result Diagrams 04/22/24 13:20 04/22/24 13:20 Laboratory Results 04/22/24 04/22/24 04/22/24 Range/Units 15:06 13:20 13:20 WBC 11.4 H (4.23-9.07) x10^3/uL RBC 4.41 L (4.63-6.08) x10^6/uL Hgb 13.8 (13.7-17.5) g/dL Hct 41.9 (40.1-51.0) % MCV 95.0 H (79.0-92.2) fL MCH 31.3 (25.7-32.2) pg MCHC 32.9 (32.3-36.5) g/dL RDW 13.7 (11.6-14.4) % Plt Count 248 (163-337) x10^3/uL MPV 10.1 (9.4-12.4) fL Gran % 73.9 H (34.0-67.9) % Immature Gran % (Auto) 0.9 H (0.001-0.429) % Nucleat RBC Rel Count 0.0 (0.00-0.2) % Eos # (Auto) 0.36 (0.04-0.54) x10^3/uL Immature Gran # (Auto) 0.10 H (0.001-0.031) x10^3u/L Absolute Lymphs (auto) 1.76 (1.32-3.57) x10^3/uL Absolute Monos (auto) 0.65 (0.30-0.82) x10^3/uL Absolute Nucleated RBC 0.00 (0.00-0.012) x10^3u/L Lymphocytes % 15.5 L (21.8-53.1) % Monocytes % 5.7 (5.3-12.2) % Eosinophils % 3.2 (0.8-7.0) % Basophils % 0.8 (0.2-1.2) % Absolute Granulocytes 8.41 H (1.78-5.38) x10^3/uL Basophils # 0.09 H (0.01-0.08) x10^3/uL Sodium 140 (135-145) mmol/L Potassium 5.0 (3.5-5.1) mmol/L Chloride 106 (98-107) mmol/L Carbon Dioxide 25 (22-30) mmol/L Anion Gap 13.3 (5-15) MEQ/L BUN 12 (9-20) mg/dL Creatinine 1.18 (0.66-1.25) mg/dL Estimated GFR 67.6 ML/MIN Glucose 131 H (74-106) mg/dL Calcium 10.1 (8.4-10.2) mg/dL Total Bilirubin 0.90 (0.2-1.3) mg/dL AST 69 H (17-59) U/L ALT 69 H (0-50) U/L Alkaline Phosphatase 87 (38-126) U/L Serum Total Protein 7.2 (6.3-8.2) g/dL Albumin 4.4 (3.5-5.0) g/dL Amylase 62 (30-110) U/L Lipase 129 (23-300) U/L Urine Color Dark Yellow (Yellow) Urine Appearance Cloudy A (Clear) Urine pH 5.0 (4.6-8.0) Ur Specific [place] 1.025 (1.005-1.030) Urine Protein 100 A (Negative) Urine Glucose (UA) Negative (Negative) mg/dL Urine Ketones Negative (Negative) Urine Blood Large A (Negative) Urine Nitrite Negative (Negative) Urine Bilirubin Small A (Negative) Urine Urobilinogen 0.2 (0.2) mg/dL Ur Leukocyte Esterase Trace A (Negative) U Hyaline Cast (Auto) 3-5 A (0-2) /LPF Urine Microscopic RBC >100 A (0-5) /HPF Urine Microscopic WBC 3-5 (0-5) /HPF Ur Epithelial Cells None Seen (None Seen) /HPF Urine Bacteria None Seen (None Seen) /HPF Urine Culture Reflexed YES (NO) - Progress Progress: improved, pain not gone completely, re-examined Progress Note: 04/22/24 14:08 My medical decision making and the assignment of moderate complexity is based on review of the patient's past medical history, review the patient's medication list, reviewed patient drug allergy list, history present illness and physical findings on examination. The workup in this patient includes placement of intravenous line, infusion of normal saline solution, infusion of Dilaudid intravenously, infusion of Zofran intravenously, CBC, CMP, urinalysis, amylase, lipase and CT scan of the abdomen pelvis without contrast. Differential diagnosis includes but is not limited to pyelonephritis, urinary tract infection, pancreatitis, ureterolithiasis, colitis, diverticulitis The CT scan of the abdomen pelvis without contrast was interpreted by the radiologist and I reviewed the impression. The impression states a new, small right UPJ calculus producing mild hydronephrosis (mild obstructive uropathy) without perinephric fluid. There are bilateral micro calculi within the kidneys. The right side UPJ calculus measures 0.9 x 1.1 x 1.5 mm. 04/22/24 15:41 I interpreted the patient's laboratory data results. Based on the laboratory data results, there is hematuria and urinary tract infection but no other acute, emergent findings Counseled pt/family regarding: lab results, diagnosis, need for follow-up, rad results Medical Desision Making - Independent Historian Additional History obtained from: Spouse - Diagnostic Testing Diagnostic test were ordered, analyzed, and reviewed by me: Yes Radiological Interpretation: Reviewed by me, Teleradiologist Report - Risk of complications The pt has a mod risk of morbidity or mortality based on: Need for prescription drug management - Departure Departure Disposition: Home Clinical Impression: Right ureteral calculus, Urinary tract infection Condition: Stable Critical Care Time: No Referrals: JO RIVERA NP [Primary Care Provider] - Follow up/PCP as directed Additional Instructions: Drink plenty of clear liquids. Take your pain medicine, antibiotics and Flomax as prescribed. Follow-up with your urology appointment date and time Prescriptions: Hydrocodone/APAP 5/325 [[place] 5/325 mg] 1 each PO Q6H PRN PRN #6 tablet MDD 3 PRN Reason: Pain Tamsulosin HCl 0.4 mg [Flomax 0.4 MG] 0.4 mg PO DAILY #7 cap Cephalexin Mh 500 mg [Keflex 500 mg] 500 mg PO TID #21 cap
[2024-04-22] MEDS ORDERED: Zofran 4 MG/2 ML VIAL ONE (13:13)
[2024-04-22] MEDS ORDERED: Hydromorphone 1 mg/ml Injection ONE (13:13)
[2024-04-22] MEDS ORDERED: Sodium Chloride 0.9% 1000 ML 1,000 ML ONE (13:14)
[2024-04-22] MEDS: Sodium Chloride 0.9% 1000 ML 1,000 ML IV STA (13:16)
[2024-04-22] MEDS: Hydromorphone 1 mg/ml Injection IV ONE (13:17)
[2024-04-22] MEDS: Zofran 4 MG/2 ML VIAL IV ONE (13:17)
[2024-04-22 13:23] VITALS: TEMP 97
[2024-04-22 13:25] LABS: Absolute Neutrophil Ct (ANC) 8.41 x10^3/uL (1.78-5.38); BASOPHIL % 0.8 % (0.2-1.2); Basophil (Absolute #) 0.09 x10^3/uL (0.01-0.08); Eosinophil % 3.2 % (0.8-7.0); Eosinophil (Absolute #) 0.36 x10^3/uL (0.04-0.54); Hematocrit 41.9 % (40.1-51.0); Hemoglobin 13.8 g/dL (13.7-17.5); IMMATURE GRAN % 0.9 % (0.001-0.429); Lymphocyte (Absolute #) 1.76 x10^3/uL (1.32-3.57); Lymphocytes % 15.5 % (21.8-53.1); Mean Corpuscular Hemoglobin 31.3 pg (25.7-32.2); Mean Corpuscular Hgb Concent. 32.9 g/dL (32.3-36.5); Mean Platelet Volume 10.1 fL (9.4-12.4); Monocyte (Absolute #) 0.65 x10^3/uL (0.30-0.82); Monocytes % 5.7 % (5.3-12.2); Neutrophil % 73.9 % (34.0-67.9); Platelet Count 248 x10^3/uL (163-337); Red Blood Count 4.41 x10^6/uL (4.63-6.08); Red Cell Distribution Width 13.7 % (11.6-14.4); White Blood Count 11.4 x10^3/uL (4.23-9.07)
[2024-04-22 13:40] LABS: ALBUMIN 4.4 g/dL (3.5-5.0); ANION GAP 13.3 MEQ/L (5-15); BILIRUBIN,TOTAL 0.9 mg/dL (0.2-1.3); Calcium 10.1 mg/dL (8.4-10.2); Creatinine 1 1.18 mg/dL (0.66-1.25); EST GLOMERULAR FILTRATION RATE 67.6 ML/MIN; Total Protein 7.2 g/dL (6.3-8.2)
--- NOTE | 2024-04-22 13:57 | XRAY ---
Indication: Right flank pain. Multiple contiguous axial images obtained through the abdomen and pelvis without contrast using renal stone protocol. Comparison: December 07, 2021 Lung bases again demonstrates minimal subsegmental atelectasis/scarring and small right base calcified granuloma. Heart not enlarged. New 0.9 x 1.5 x 1.1 m right UPJ calculus with mild hydronephrosis. No perinephric fluid. Again a few additional bilateral renal micro-calculi and 1.3 cm right lower renal cortical cyst. Noncontrasted stomach and bowel loops appear nonobstructed with normal appendix. Again fatty liver, 1.5 cm gallstone, and splenic calcified granulomas. No free fluid/air. Remaining liver, gallbladder, pancreas, spleen, adrenal glands, kidneys, ureters, and bladder are unremarkable for noncontrast exam. There remains mild scattered aortoiliac calcifications without AAA. Osseous structures intact again with osteopenia and mild degenerative changes throughout spine. Impression: 1. New small right UPJ calculus producing obstructive uropathy as detailed. Again additional bilateral renal micro-calculi and incidental right renal cyst. 2. Chronic findings including fatty liver, arteriosclerotic disease, chronic bony findings, and old granulomatous disease.
[2024-04-22] MEDS ORDERED: Flomax 0.4 MG ONE (14:27)
[2024-04-22] MEDS: Flomax 0.4 MG PO ONE (14:28)
[2024-04-22 15:06] VITALS: BP 131/54
[2024-04-22 15:24] LABS: Appearance Cloudy (Clear); Bacteria None Seen /HPF (None Seen); Bilirubin Small (Negative); Blood Large (Negative); Epithelial Cells None Seen /HPF (None Seen); Glucose, Urine Negative (Negative); Ketones Negative (Negative); Leukocyte Esterase Trace (Negative); Nitrite Negative (Negative); Protein,Urine Dip 100 (Negative); RBC >100 /HPF (0-5); Specific Gravity 1.025 (1.005-1.030); Urobilinogen 0.2 mg/dL (0.2)
[2024-04-22] MEDS ORDERED: KEFLEX 500 MG ONE (15:40)
[2024-04-22] MEDS: KEFLEX 500 MG PO ONE (15:41)
[2024-04-22 15:57] VITALS: PULSE 63; RESP 16; O2SAT 98
== END 2024-04-22 15:56 | disposition home or self-care (01) ==
LOC: ED 12:56
DX: N13.2 Hydronephrosis with renal and ureteral calculous obstruction (principal); N39.0 Urinary tract infection, site not specified; R10.9 Unspecified abdominal pain; E78.5 Hyperlipidemia, unspecified; I10 Essential (primary) hypertension; Z79.02 Long term (current) use of antithrombotics/antiplatelets; Z79.891 Long term (current) use of opiate analgesic; Z79.899 Other long term (current) drug therapy
CPT/HCPCS: 36415; 74176; 80053; 81001; 82150; 83690; 85025; 87086; 96374; 96375; 99284; J1171; J2405; A9270-GY